=== PATIENT | female | born 1985 | race Caucasian/White ===

== ENCOUNTER 2019-11-28 07:29 | Inpatient (IN) | payer SELFPAY ==
[~2019-11-28] VITALS: Ht 170.1 cm; Wt 112.8 kg
[~2019-11-28 07:29] MED LIST: CEFD300C3 PO; CPR500T PO; HYDR-34 PO; HYDR1TAB PO; IBUP-15; LEVAQUIN; ONDA4TAB11 PO; PRM25T PO; TYLENOL; VICODIN
[2019-11-28] MEDS ORDERED: NS IV 1000 ML 1,000 ML IV SCH (07:48)
[2019-11-28] MEDS ORDERED: HCTZ (07:50)
--- NOTE | 2019-11-28 07:51 | NUR ---
AMB TO BATHROOM
[2019-11-28 07:58] LABS: BILIRUBIN,URINE NEGATIVE (NEGATIVE); CLARITY,URINE CLEAR; COLOR,URINE YELLOW; GLUCOSE, URINE (UA) NEGATIVE (NEGATIVE); KETONES,URINE NEGATIVE (NEGATIVE); LEUKOCYTE ESTERASE ,URINE 3+ (NEGATIVE); NITRITE,URINE POSITIVE (NEGATIVE); PH,URINE 6.5 (5-9); PROTEIN,URINE NEGATIVE (NEGATIVE)
[2019-11-28] MEDS ORDERED: ONDANSETRON 4 MG/2 ML (SDV) Z0FRAN IVP ONE (08:00)
[2019-11-28] MEDS ORDERED: KETOROLAC 30 MG/ML VIAL IVP ONE (08:00)
[2019-11-28 08:06] LABS: BASOPHILS % (AUTO) 0 % (0-10); EOSINOPHILS # (AUTO) 0.2 10^3/uL (0.0-0.3); EOSINOPHILS % (AUTO) 2 % (0-10); HEMATOCRIT 46 % (35-52); HEMOGLOBIN 15.6 G/DL (11.5-16.0); LYMPHOCYTES # (AUTO) 1.4 X 10^3 (1.0-4.0); LYMPHOCYTES % (AUTO) 12 % (12-44); MEAN CORPUSCULAR HEMOGLOBIN 29 PG (25-34); MEAN CORPUSCULAR HGB CONC 34 G/DL (32-36); MEAN CORPUSCULAR VOLUME 84 FL (80-99); MEAN PLATELET VOLUME 9.8 FL (7.4-10.4); MONOCYTES # (AUTO) 0.6 X 10^3 (0.0-1.0); MONOCYTES % (AUTO) 5 % (0-12); NEUTROPHILS # (AUTO) 10.1 X 10^3 (1.8-7.8); NEUTROPHILS % (AUTO) 82 % (42-75); PLATELET COUNT 345 10^3/uL (130-400); RED CELL DISTRIBUTION WIDTH 13.4 % (10.0-14.5); WHITE BLOOD COUNT 12.4 10^3/uL (4.3-11.0)
[2019-11-28 08:12] LABS: WBC,URINE 50-100 /HPF
[2019-11-28 08:13] LABS: BACTERIA,URINE LARGE /HPF
--- NOTE | 2019-11-28 08:17 | ED GU-Female ---
General Chief Complaint: Abdominal/GI Problems Stated Complaint: KIDNEY PAIN Nursing Triage Note: AMB TO ED C/O R FLANK PAIN PMH OF KIDNEY STONE. REPORTS IN APR HAS LG STONE REMOVED. YESTERDAY ONSET OF R FLANK PAIN Nursing Sepsis Screen: No Definite Risk Source: patient Exam Limitations: no limitations History of Present Illness Date Seen by Provider: Nov 28, 2019 Time Seen by Provider: 07:29 Initial Comments The patient arrives to the ER from home with chief complaint of one-day right flank pain consistent with her history of kidney stones radiating down into her right groin with hesitancy and, hematuria, dysuria. She's had chills but no fevers. Tmax of 99.0. She's been using Tylenol and ibuprofen. Her last dose of her Profen was sometime last night before she went to bed 600 mg. She says the pain as 9 out of 10. She has followed with Dr. Aguilar, urology at [facility] and had to have nephrostomy and urostomy tubes. She is familiar with Dr. Hernandez locally. She's having some nausea but no vomiting. She's had only marginal pain control. Allergies and Home Medications Allergies Coded Allergies: Sulfa (Sulfonamide Antibiotics) (Unverified Allergy, Mild, HIVES, 07/05/08) Patient Home Medication List Home Medication List Reviewed: Yes Review of Systems Review of Systems Constitutional: chills; No diaphoresis, No fever; malaise EENTM: No ear discharge, No ear pain Respiratory: No cough, No short of breath Cardiovascular: No chest pain, No Hx of Intervention Gastrointestinal: No abdominal pain; nausea; No vomiting Genitourinary: see HPI, dysuria, frequency, flank pain, hematuria : No Musculoskeletal: No back pain, No joint pain All Other Systemes Reviewed Negative Unless Noted: Yes Past Mxnclew-Khrbvp-Ayjaok Hx Patient Social History Alcohol Use: Denies Use Recreational Drug Use: No Smoking Status: Never a Smoker Recent Foreign Travel: No Contact w/Someone Who Travel: No Recent Infectious Disease Expo: No Past Medical History Surgeries: Yes (KIDNEY STONE) Respiratory: No Cardiac: Yes Hypertension Gastrointestinal: No Endocrine: No HEENT: No Cancer: No Psychosocial: No Physical Exam Vital Signs Vital Signs - First Documented 11/28/19 07:34 Temp 36.9 Pulse 100 Resp 18 B/P (MAP) 117/99 (105) Pulse Ox 99 Capillary Refill : Less Than 3 Seconds Height, Weight, BMI Height: '" Weight: lbs. oz. kg; 36.00 BMI Method: General Appearance: WD/WN, mild distress HEENT: PERRL/EOMI, pharynx normal Neck: full range of motion, supple, normal inspection Cardiovascular: normal peripheral pulses, regular rate, rhythm, tachycardia (120-130) Respiratory: lungs clear, normal breath sounds, no respiratory distress, no accessory muscle use Gastrointestinal: normal bowel sounds, non tender, soft Neurologic/Psychiatric: alert, normal mood/affect, oriented x 3 Skin: normal color, warm/dry Focused Exam Sepsis Stage: Sepsis Possible Source: Genitouriary Lactate Level 11/28/19 08:13: Lactic Acid Level 2.05*H Time of Focused Exam: 09:27 Respiratory: Lungs Clear, Normal Breath Sounds, No Accessory Muscle Use, No Respiratory Distress Cardiovascular: Regular Rate, Rhythm, No Edema, Normal Peripheral Pulses Capillary Refill: Less Than 3 Seconds Peripheral Pulses: 2+ Radial Pulses (R), 2+ Radial Pulses (L) Skin: normal color, warm/dry Lactic Acid Level Laboratory Tests Test 11/28/19 08:13 Lactic Acid Level 2.05 MMOL/L (0.50-2.00) *H Within 3hrs of presentation: Admin fluids, Admin 30ml/kg IBW due to BMI>30, Admin ABX, Blood cultures prior to ABX's, Focus exam, Lactate level Progress/Results/Core Measures Suspected Sepsis Recent Fever Within 48 Hours: No Infection Criteria Present: None New/Unexplained Altered Menta: No Sepsis Screen: No Definite Risk SIRS Temperature: Pulse: 100 Respiratory Rate: 18 Laboratory Tests 11/28/19 08:00: White Blood Count 12.4H Blood Pressure 117 /99 Mean: 105 11/28/19 08:13: Lactic Acid Level 2.05*H Laboratory Tests 11/28/19 08:00: Creatinine 0.83, INR Comment 0.9, Platelet Count 345, Total Bilirubin 0.5 Results/Orders Lab Results Laboratory Tests Test 11/28/19 07:55 11/28/19 08:00 11/28/19 08:13 Range/Units Urine Color YELLOW Urine Clarity CLEAR Urine pH 6.5 5-9 Urine Specific [place] 1.015 L 1.016-1.022 Urine Protein NEGATIVE NEGATIVE Urine Glucose (UA) NEGATIVE NEGATIVE Urine Ketones NEGATIVE NEGATIVE Urine Nitrite POSITIVE H NEGATIVE Urine Bilirubin NEGATIVE NEGATIVE Urine Urobilinogen 0.2 < = 1.0 MG/DL Urine Leukocyte Esterase 3+ H NEGATIVE Urine RBC (Auto) 3+ H NEGATIVE Urine RBC 10-25 H /HPF Urine WBC 50-100 H /HPF Urine Squamous Epithelial Cells 2-5 /HPF Urine Crystals NONE /LPF Urine Bacteria LARGE H /HPF Urine Casts NONE /LPF Urine Mucus NEGATIVE /LPF Urine Culture Indicated YES White Blood Count 12.4 H 4.3-11.0 10^3/uL Red Blood Count 5.46 4.35-5.85 10^6/uL Hemoglobin 15.6 11.5-16.0 G/DL Hematocrit 46 35-52 % Mean Corpuscular Volume 84 80-99 FL Mean Corpuscular Hemoglobin 29 25-34 PG Mean Corpuscular Hemoglobin Concent 34 32-36 G/DL Red Cell Distribution Width 13.4 10.0-14.5 % Platelet Count 345 130-400 10^3/uL Mean Platelet Volume 9.8 7.4-10.4 FL Neutrophils (%) (Auto) 82 H 42-75 % Lymphocytes (%) (Auto) 12 12-44 % Monocytes (%) (Auto) 5 0-12 % Eosinophils (%) (Auto) 2 0-10 % Basophils (%) (Auto) 0 0-10 % Neutrophils # (Auto) 10.1 H 1.8-7.8 X 10^3 Lymphocytes # (Auto) 1.4 1.0-4.0 X 10^3 Monocytes # (Auto) 0.6 0.0-1.0 X 10^3 Eosinophils # (Auto) 0.2 0.0-0.3 10^3/uL Basophils # (Auto) 0.0 0.0-0.1 10^3/uL Prothrombin Time 12.3 12.2-14.7 SEC INR Comment 0.9 0.8-1.4 Activated Partial Thromboplast Time 35 24-35 SEC Sodium Level 138 135-145 MMOL/L Potassium Level 3.7 3.6-5.0 MMOL/L Chloride Level 102 98-107 MMOL/L Carbon Dioxide Level 24 21-32 MMOL/L Anion Gap 12 5-14 MMOL/L Blood Urea Nitrogen 7 7-18 MG/DL Creatinine 0.83 0.60-1.30 MG/DL Estimat Glomerular Filtration Rate > 60 BUN/Creatinine Ratio 8 Glucose Level 106 H 70-105 MG/DL Calcium Level 9.6 8.5-10.1 MG/DL Corrected Calcium 9.4 8.5-10.1 MG/DL Total Bilirubin 0.5 0.1-1.0 MG/DL Aspartate Amino Transf (AST/SGOT) 27 5-34 U/L Alanine Aminotransferase (ALT/SGPT) 46 0-55 U/L Alkaline Phosphatase 77 40-136 U/L Total Protein 8.0 6.4-8.2 GM/DL Albumin 4.2 3.2-4.5 GM/DL Lactic Acid Level 2.05 *H 0.50-2.00 MMOL/L My Orders Orders - SHRUTHI JIANG Ua Culture If Indicated (11/28/19 07:36) Urine Bedside (11/28/19 07:36) Ed Iv/Invasive Line Start (11/28/19 07:48) Ns Iv 1000 Ml (Sodium Chloride 0.9%) (11/28/19 07:48) Cbc With Automated Diff (11/28/19 07:48) Comprehensive Metabolic Panel (11/28/19 07:48) Ct Abd/Pelvis Wo(Kidney Stone) (11/28/19 07:57) Ketorolac Injection (Toradol Injection) (11/28/19 08:00) Ondansetron Injection (Zofran Injectio (11/28/19 08:00) Blood Culture (11/28/19 07:57) Lactic Acid Analyzer (11/28/19 07:57) Urine Culture (11/28/19 07:55) Protime With Inr (11/28/19 08:27) Partial Thromboplastin Time (11/28/19 08:27) Ed Iv/Invasive Line Start (11/28/19 08:27) Ed Iv/Invasive Line Start (11/28/19 08:27) Vital Signs Adult Sepsis Patie Q15M (11/28/19 08:27) Remove Rings In Anticipation O (11/28/19 08:27) Ceftriaxone For Iv Use (Rocephin For I (11/28/19 08:30) Ed Iv/Invasive Line Start (11/28/19 08:27) Ns Iv 500 Ml (Sodium Chloride 0.9%) (11/28/19 08:27) Medications Given in ED Current Medications Medications Dose Ordered Sig/Darrius Route Start Time Stop Time Status Last Admin Dose Admin Ceftriaxone Sodium 1000 mg/ Sterile Water 10 ml @ 200 mls/hr ONCE ONCE IV 11/28/19 08:30 11/28/19 08:32 DC 11/28/19 08:38 200 MLS/HR Ketorolac Tromethamine 30 mg ONCE ONCE IVP 11/28/19 08:00 11/28/19 08:01 DC 11/28/19 08:05 30 MG Ondansetron HCl 4 mg ONCE ONCE IVP 11/28/19 08:00 11/28/19 08:01 DC 11/28/19 08:04 4 MG Vital Signs/I&O 11/28/19 07:34 Temp 36.9 Pulse 100 Resp 18 B/P (MAP) 117/99 (105) Pulse Ox 99 Capillary Refill : Less Than 3 Seconds Blood Pressure Mean: 105 Progress Note : Time: 08:21 Progress Note Marginally elevated white count and tachycardia with a suspected source of infection in the urinary tract. We'll get a septic workup and give her 1500 mL of IV fluids which would be 20 mL/kg based on an adjusted ideal body weight of 78 kg. Rocephin for IV antibiotic coverage. CT scan of her abdomen and pelvis without IV contrast for kidney stone. Diagnostic Imaging Diagonstic Imaging: CT (kidney stone study without IV contrast) Plain Films/CT/US/NM/MRI: abdomen, pelvis Reviewed: Reviewed by Me Departure Communication (Admissions) Time/Spoke to Admitting Phy: 09:35 0925: Left voicemail with Dr. Patel. I discussed case with Dr. Patel and she agrees to accept patient to medical surgical floor on IV Rocephin for pyelonephritis Impression Primary Impression: Pyelonephritis Additional Impression: Sepsis Qualified Codes: A41.9 - Sepsis, unspecified organism Disposition: ADMITTED INPATIENT Condition: Stable Admissions Decision to Admit Reason: Admit from ER (General) Decision to Admit/Date: Nov 28, 2019 Time/Decision to Admit Time: 09:00 SHRUTHI JIANG Nov 28, 2019 08:17
--- NOTE | 2019-11-28 08:17 | NUR ---
2ND BLOOD CULTURE DRAWN BY LAB
[2019-11-28 08:25] LABS: ALANINE AMINOTRANSFERASE 46 U/L (0-55); ALBUMIN 4.2 GM/DL (3.2-4.5); ALKALINE PHOSPHATASE 77 U/L (40-136); BILIRUBIN,TOTAL 0.5 MG/DL (0.1-1.0); BUN/CREATININE RATIO 8; CALCIUM 9.6 MG/DL (8.5-10.1); CARBON DIOXIDE 24 MMOL/L (21-32); CHLORIDE 102 MMOL/L (98-107); CREATININE SERUM 0.83 MG/DL (0.60-1.30); GFR ESTIMATED > 60; GLUCOSE 106 MG/DL (70-105); POTASSIUM 3.7 MMOL/L (3.6-5.0); SODIUM 138 MMOL/L (135-145)
[2019-11-28] MEDS ORDERED: NS IV 500 ML 500 ML IV ONE (08:27)
[2019-11-28] MEDS ORDERED: cefTRIAXone FOR IV USE 1,000 MG in WATER (STERILE) FOR INJECTION 10 ML IV ONE (08:30)
[2019-11-28 08:45] LABS: INR 0.9 (0.8-1.4); PROTHROMBIN TIME PATIENT 12.3 SEC (12.2-14.7)
--- NOTE | 2019-11-28 08:57 | Diagnostic Imaging Report ---
PROCEDURE: CT urinary tract, rule out kidney stone. TECHNIQUE: Multiple contiguous axial images were obtained through the abdomen and pelvis without the use of intravenous contrast. Auto Exposure Controls were utilized during the CT exam to meet ALARA standards for radiation dose reduction. INDICATION: Right flank pain and hematuria. No prior studies are available for comparison. The lung bases are clear. Liver demonstrates diffuse low density consistent with hepatic steatosis. No discrete liver mass is identified. Gallbladder is unremarkable. There is no biliary ductal dilatation. Pancreas and spleen are unremarkable. No adrenal mass is detected. There are extensive calcifications involving the medullary portions of both kidneys consistent with medullary nephrocalcinosis. In addition, there appears to be nephrolithiasis present with several stones within renal collecting systems on the right. A 6 mm calculus lower pole right kidney is seen. There is a large calculus in the right renal pelvis measuring 13 mm. In addition, there appears to be gas within the right renal collecting system and right renal pelvis. 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 The right ureter is without calculi. There is trace gas in the urinary bladder. A left ureter is unremarkable. No hydronephrosis on the left side is seen. Aorta is non-aneurysmal. Small and large bowel loops are normal caliber. No free fluid is identified. There is no fluid collection. Uterus is unremarkable. IMPRESSION: 1. Hepatic steatosis. 2. Extensive renal calcifications bilaterally. Features are consistent with medullary nephrocalcinosis. In addition, there appears to be right-sided nephrolithiasis with largest calculus located in the right renal pelvis producing mild hydronephrosis. 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 There is trace gas within the urinary bladder as well. Dictated by: Dictated on workstation # [id number]
[2019-11-28] MEDS ORDERED: HYDROcodone/APAP 5 MG/325 MG (LORTAB) TAB PO ONE (09:45)
[2019-11-28 10:00] VITALS: BP 120/80
[2019-11-28] MEDS ORDERED: LACTATED RINGERS 1,000 ML IV ONE (10:18)
[2019-11-28 10:20] VITALS: BP 117/73
--- NOTE | 2019-11-28 10:20 | NUR ---
BEATA CHOUDHURY admitted to room 416-1, with an admitting diagnosis of SEPSIS/PYELONEPHRITIS, on 11/28/19 from ED via , accompanied by STAFF. BEATA CHOUDHURY introduced to surroundings, call light, bed controls, phone, TV, temperature control, lights, meal times, smoking policy, visitor policy, side rail policy, bathrooms and showers. Patient Rights given to patient in the handbook. BEATA CHOUDHURY verbalizes understanding that [facility] is not responsible for the loss or damage to any personal effects or valuables that are kept in the patients posession during their hospitalization. The following Patient Care Plans were discussed with the PT: Discharge Planning, PAIN, AND UTI. BEATA CHOUDHURY verbalizes understanding of Interdisciplinary Patient Education. Patient and/or family were informed about the Rapid Response Team and its purpose.
[2019-11-28] MEDS ORDERED: fentaNYL INJECTION 100 MCG/2 ML AMP IV PRN (11:30)
[2019-11-28] MEDS ORDERED: ONDANSETRON 4 MG/2 ML (SDV) Z0FRAN IV PRN (11:30)
[2019-11-28] MEDS: LACTATED RINGERS 1,000 ML IV SCH ×2 (11:40→18:04)
[2019-11-28 12:00] VITALS: BP 119/74
--- NOTE | 2019-11-28 13:00 | NUR ---
TYLENOL 650 PO FOR PAIN.
[2019-11-28] MEDS: ACETAMINOPHEN 325 MG TABLET PO PRN (13:03)
[2019-11-28] MEDS ORDERED: HYDR12.56 PO (13:06)
[2019-11-28] MEDS ORDERED: RT-ALBUINH IH (13:06)
[2019-11-28] MEDS ORDERED: ACET325T38 PO (13:06)
[2019-11-28] MEDS ORDERED: IBUP-1773 PO (13:06)
--- NOTE | 2019-11-28 13:15 | History & Physical-Hospitalist ---
History of Present Illness HPI/Chief Complaint Pt is a 34yoCF with a PMH of recurrent kidney stones who presented to the ER due to flank pain. She states her symptoms started a couple of days ago. She thought it was another kidney stone so just tried to deal with it at home. She slept most of yesterday and then developed chills and subjective fever. She has some dysuria as well. She states her temperature only got up to 99 at home but had rigors. She was hardly able to drive her kids to school today because of the rigors prompting her to seek evaluation here. Source: patient Date Seen 11/28/19 Time Seen by a Provider: 13:02 Attending Physician Baltazar Patel MD PCP No,Local Physician Referring Physician Date of Admission Nov 28, 2019 at 09:45 Home Medications & Allergies Home Medications Reviewed patient Home Medication Reconciliation performed by pharmacy medication reconciliations electronic lab technician and/or nursing. Patients Allergies have been reviewed. Allergies Allergies Coded Allergies Sulfa (Sulfonamide Antibiotics) (Unverified Allergy, Mild, HIVES, 11/28/19) Past Sixavvp-Kkcapz-Nqwpzf Hx Past Med/Social Hx: Reviewed Nursing Past Med/Soc Hx Patient Social History Marrital Status: single Employed/Student: employed Alcohol Use: Denies Use Recreational Drug Use: No Smoking Status: Never a Smoker Recent Foreign Travel: No Contact w/other who traveled: No Recent Infectious Disease Expo: No Past Medical History Cardiac: Hypertension Genitourinary: Kidney Infection, Kidney Stones Family History Reviewed Nursing Family Hx No Pertinent Family Hx Review of Systems Constitutional: chills, diaphoresis, fever EENTM: no symptoms reported Respiratory: No cough, No short of breath Cardiovascular: No chest pain, No palpitations Gastrointestinal: No abdominal pain, No nausea, No vomiting Genitourinary: dysuria, hematuria Musculoskeletal: muscle weakness Skin: no symptoms reported Psychiatric/Neurological: No Symptoms Reported Physical Exam Physical Exam Vital Signs Vital Signs - First Documented 11/28/19 11/28/19 07:34 10:00 Temp 36.9 Pulse 100 Resp 18 B/P (MAP) 117/99 (105) Pulse Ox 99 O2 Delivery Room Air Capillary Refill : Less Than 3 Seconds Height, Weight, BMI Height: '" Weight: lbs. oz. kg; 36.00 BMI Method: General Appearance: No Apparent Distress, WD/WN, Obese HEENT: PERRL/EOMI, Moist Mucous Membranes; No Scleral Icterus (L), No Scleral Icterus (R) Neck: Normal Inspection, Supple Respiratory: Lungs Clear, No Accessory Muscle Use, No Respiratory Distress Cardiovascular: Regular Rate, Rhythm, No JVD, No Murmur Gastrointestinal: Normal Bowel Sounds, Non Tender, Soft Extremity: No Calf Tenderness, No Pedal Edema Neurologic/Psychiatric: Alert, Oriented x3, Normal Mood/Affect Results Results/Procedures Labs Laboratory Tests 11/29/19 04:40 11/29/19 04:50 Patient resulted labs reviewed. Imaging: Reviewed Imaging Report Imaging [facility], [place] NAME: BEATA CHOUDHURY [facility] REC#: [id number] PT STATUS: REG ER : 1985 PHYSICIAN: SHRUTHI JIANG MD ADMIT DATE: 11/28/19/ER Draft Date of Exam:11/28/19 CT ABD/PELVIS WO(KIDNEY STONE) PROCEDURE: CT urinary tract, rule out kidney stone. TECHNIQUE: Multiple contiguous axial images were obtained through the abdomen and pelvis without the use of intravenous contrast. Auto Exposure Controls were utilized during the CT exam to meet ALARA standards for radiation dose reduction. INDICATION: Right flank pain and hematuria. No prior studies are available for comparison. The lung bases are clear. Liver demonstrates diffuse low density consistent with hepatic steatosis. No discrete liver mass is identified. Gallbladder is unremarkable. There is no biliary ductal dilatation. Pancreas and spleen are unremarkable. No adrenal mass is detected. There are extensive calcifications involving the medullary portions of both kidneys consistent with medullary nephrocalcinosis. In addition, there appears to be nephrolithiasis present with several stones within renal collecting systems on the right. A 6 mm calculus lower pole right kidney is seen. There is a large calculus in the right renal pelvis measuring 13 mm. In addition, there appears to be gas within the right renal collecting system and right renal pelvis. 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 The right ureter is without calculi. There is trace gas in the urinary bladder. A left ureter is unremarkable. No hydronephrosis on the left side is seen. Aorta is non-aneurysmal. Small and large bowel loops are normal caliber. No free fluid is identified. There is no fluid collection. Uterus is unremarkable. IMPRESSION: 1. Hepatic steatosis. 2. Extensive renal calcifications bilaterally. Features are consistent with medullary nephrocalcinosis. In addition, there appears to be right-sided nephrolithiasis with largest calculus located in the right renal pelvis producing mild hydronephrosis. 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 There is trace gas within the urinary bladder as well. Dictated on workstation # [id number] Dict: 11/28/19 0841 Trans: 11/28/19 0857 CV [id number] Interpreted by: ROBINSON HORTON MD Electronically signed by: Assessment/Plan Admission Diagnosis Severe Sepsis Admission Status: Inpatient Order (span 2 midnights) Reason for Inpatient Admission: IV abx, extensive calculi- need to await cultures Assessment and Plan Severe Sepsis- present on arrival Nephrolithiasis UTI Fever with leukocytosis and tachycardia with Lactic Acidosis Continue IV abx Await cultures Discussed with Dr Hernandez who will see her in consultation, appreciate assistance Normally follows with [facility] for urology DVT ppx: SCDs Diagnosis/Problems Diagnosis/Problems (1) Pyelonephritis Status: Acute (2) Sepsis Status: Acute Qualifiers: Sepsis type: Escherichia coli Sepsis acute organ dysfunction status: with acute organ dysfunction Severe sepsis acute organ dysfunction type: unspecified Severe sepsis shock status: without septic shock Qualified Codes: A41.51 - Sepsis due to Escherichia coli [e. coli]; R65.20 - Severe sepsis without septic shock (3) Nephrolithiasis Status: Chronic (4) Hypercalciuria Status: Chronic BALTAZAR PATEL MD Nov 28, 2019 13:15
[2019-11-28] MEDS ORDERED: IBUP-2473 PO (13:25)
--- NOTE | 2019-11-28 13:26 | NUR ---
I SPOKE WITH THE PATIENT, [facility] AND [facility] TO COMPLETE THIS MED REC HYDROCHLOROTHIAZIDE 12.5MG #60 30DS LAST FILLED 10/25/2019 ALBUTEROL SULFATE INH LAST PICKED UP 10/10/2019 OTC: IBUPROFEN TYLENOL
--- NOTE | 2019-11-28 15:25 | NUR ---
LORTAB 5 PO FOR PAIN.
[2019-11-28] MEDS: HYDROcodone/APAP 5 MG/325 MG (LORTAB) TAB PO PRN ×2 (15:28→21:28)
[2019-11-28 15:49] VITALS: BP 128/71
[2019-11-28] MEDS: KETOROLAC 15 MG/ML VIAL IV PRN (21:29)
[2019-11-28 21:49] VITALS: BP 107/56
--- NOTE | 2019-11-28 22:40 | NUR ---
2148- DURING VITAL SIGNS CHECK, PT HAD TEMPERATURE OF 39.1 DEGREES CELSIUS PER TEMPORAL THERMOMETER AND RATING PAIN 5/10 D/T HEADACHE. BP- 107/56 WITH PULSE OF 113. 2157- TORADOL 15 MG IV GIVEN FOR TEMPERATURE--- LORTAB 5 MG PO GIVEN FOR PAIN AT THIS TIME. 2224- PT STATES THAT SHE WOULD LIKE TO TAKE A SHOWER D/T SWEATING AND TO HELP WITH HER FEVER. PT'S IV WRAPPED AND ASSISTED TO SHOWER AT THIS TIME. 2239- PT FINISHED WITH SHOWER AND HELP BACK INTO BED. RECHECKED TEMPERATURE AND IT IS 36.0 DEGREES CELSIUS PER TEMPORAL THERMOMETER AND PATIENT STATES HER PAIN HAS IMPROVED TO A 1/10. ALL NEEDS MET AT THIS TIME. WILL CONTINUE TO MONITOR.
[2019-11-29 00:45] VITALS: BP 102/58
[2019-11-29] MEDS: LACTATED RINGERS 1,000 ML IV SCH ×3 (01:15→08:04)
[2019-11-29 04:17] VITALS: BP 112/62
[2019-11-29 05:07] LABS: BASOPHILS % (AUTO) 0 % (0-10); EOSINOPHILS # (AUTO) 0.2 10^3/uL (0.0-0.3); EOSINOPHILS % (AUTO) 1 % (0-10); HEMATOCRIT 41 % (35-52); HEMOGLOBIN 13.8 G/DL (11.5-16.0); LYMPHOCYTES # (AUTO) 2.5 X 10^3 (1.0-4.0); LYMPHOCYTES % (AUTO) 18 % (12-44); MEAN CORPUSCULAR HEMOGLOBIN 29 PG (25-34); MEAN CORPUSCULAR HGB CONC 34 G/DL (32-36); MEAN CORPUSCULAR VOLUME 85 FL (80-99); MEAN PLATELET VOLUME 9.8 FL (7.4-10.4); MONOCYTES # (AUTO) 1.9 X 10^3 (0.0-1.0); MONOCYTES % (AUTO) 14 % (0-12); NEUTROPHILS # (AUTO) 8.9 X 10^3 (1.8-7.8); NEUTROPHILS % (AUTO) 66 % (42-75); PLATELET COUNT 298 10^3/uL (130-400); RED CELL DISTRIBUTION WIDTH 13.7 % (10.0-14.5); WHITE BLOOD COUNT 13.4 10^3/uL (4.3-11.0)
[2019-11-29 05:32] LABS: ALANINE AMINOTRANSFERASE 31 U/L (0-55); ALBUMIN 3.3 GM/DL (3.2-4.5); ALKALINE PHOSPHATASE 54 U/L (40-136); BILIRUBIN,TOTAL 0.5 MG/DL (0.1-1.0); BUN/CREATININE RATIO 9; CARBON DIOXIDE 26 MMOL/L (21-32); CHLORIDE 103 MMOL/L (98-107); GFR ESTIMATED > 60; GLUCOSE 110 MG/DL (70-105); POTASSIUM 3.8 MMOL/L (3.6-5.0); SODIUM 138 MMOL/L (135-145); TOTAL PROTEIN 6.5 GM/DL (6.4-8.2)
[2019-11-29] MEDS: KETOROLAC 15 MG/ML VIAL IV PRN ×2 (06:04→17:00)
[2019-11-29 08:00] VITALS: BP 118/75
[2019-11-29] MEDS: ACETAMINOPHEN 325 MG TABLET PO PRN (08:03)
[2019-11-29] MEDS: cefTRIAXone 1,000 MG/SWFI 10 ML IV PUSH IV SCH ×2 (08:04)
[2019-11-29] MEDS ORDERED: PATIENT MAY USE OWN MEDS, ALL MC SCH (08:15)
[2019-11-29] MEDS ORDERED: HYDROCHLOROTHIAZIDE 12.5 MG (HCTZ) CAP PO SCH ×2 (09:00)
--- NOTE | 2019-11-29 10:58 | NUR ---
RD ASSESSMENT PMHx: HTN; nephrolithiasis PT INTERACTION: Pt was awake and pleasant during nutrition assessment. Pt states current appetite is "better now," as it had been poor this morning. Note PO intake 25% x1meal, per chart review. Pt states that she watches her Na intake at home, and has no issues with chewing/swallowing food. Pt states some recent issues with nausea, but not vomiting, constipation, or diarrhea, and that her last BM was 11/26. Note pt not currently on bowel regimen per chart review. Pt states no recent wt changes. Note unable to determine recent wt hx, per chart review. ABNORMAL NUTRITION-RELATED LAB VALUES LOW: HIGH: glu 110 Est. kcal needs: 1700 kcal | 15 kcal/kg Est. Pro needs: 90 g Pro | 0.8 g Pro/kg PES STATEMENT: Inadequate oral intake (NI-2.1) related to loss of appetite | nausea as evidenced by pt interview | PO intake 25% x1meal INTERVENTION: Continue with current diet order of Regular diet. Pt may benefit from nutrition supplementation if PO intake remains low. Will continue to follow and reassess as pt needs, intake, and status change. MONITOR/EVALUATE: PO Intake; Plan of Care; Hydration Status; Weight Status; Lab Values Lino Ravi, MS, RD, LD
--- NOTE | 2019-11-29 11:11 | Progress Note - Hospitalist ---
Subjective HPI/CC On Admission Date Seen by Provider: Nov 29, 2019 Time Seen by Provider: 11:07 Pt is a 34yoCF with a PMH of recurrent kidney stones who presented to the ER due to flank pain. She states her symptoms started a couple of days ago. She thought it was another kidney stone so just tried to deal with it at home. She slept most of yesterday and then developed chills and subjective fever. She has some dysuria as well. She states her temperature only got up to 99 at home but had rigors. She was hardly able to drive her kids to school today because of the rigors prompting her to seek evaluation here. Subjective/Events-last exam Pt reports feeling much better today. No new complaints. Fever overnight but now improved. Focused Exam Lactate Level 11/28/19 08:13: Lactic Acid Level 2.05*H 11/28/19 10:20: Lactic Acid Level 0.96 Time of Focused Exam: 09:27 Objective Exam Vital Signs Vital Signs Date Time Temp Pulse Resp B/P (MAP) Pulse Ox O2 Delivery O2 Flow Rate FiO2 11/29/19 08:00 Room Air 11/29/19 08:00 37.3 98 20 118/75 (89) 93 Capillary Refill : Less Than 3 SecondsLess Than 3 Seconds General Appearance: No Apparent Distress, WD/WN Respiratory: Lungs Clear, No Respiratory Distress Cardiovascular: Regular Rate, Rhythm, No Murmur Gastrointestinal: Normal Bowel Sounds, Soft Neurologic/Psychiatric: Alert, Oriented x3 Results/Procedures Lab Laboratory Tests 11/29/19 04:40 11/29/19 04:50 Patient resulted labs reviewed. Imaging: Reviewed Imaging Report Assessment/Plan Assessment and Plan Assess & Plan/Chief Complaint Severe Sepsis- present on arrival Nephrolithiasis UTI Sepsis improving- now afebrile Continue IV abx Await sensitivities, culture shows e coli Dr Hernandez consulted, appreciate recs Normally follows with [facility] for urology Resume home HCTZ DVT ppx: SCDs Diagnosis/Problems Diagnosis/Problems (1) Sepsis Status: Acute Qualifiers: Sepsis type: Escherichia coli Sepsis acute organ dysfunction status: with acute organ dysfunction Severe sepsis acute organ dysfunction type: unspecified Severe sepsis shock status: without septic shock Qualified Codes: A41.51 - Sepsis due to Escherichia coli [e. coli]; R65.20 - Severe sepsis without septic shock (2) Pyelonephritis Status: Acute (3) Nephrolithiasis Status: Chronic (4) Hypercalciuria Status: Chronic Clinical Quality Measures DVT/VTE Risk/Contraindication: Risk Factor Score Per Nursin RFS Level Per Nursing on Admit: 4+=Very High ABLTAZAR DEJESUS MD Nov 29, 2019 11:11
[2019-11-29 12:00] VITALS: BP 115/79
--- NOTE | 2019-11-29 12:36 | CONSULTATION REPORT ---
DATE OF SERVICE: 11/29/2019 ATTENDING PHYSICIAN: Dr. Patel. SUMMARY: After reviewing the patient's record in the hospital, x-rays and office record, a 24-year-old white girl known to me with a history of nephrocalcinosis and a large renal stones that I referred to Dr. Pollock in . The patient was lost for followup. She even missed her appointment with him in September. She is not a greatest reliability. She is being admitted with flank pain and pyelonephritis. There is some air in the right kidney, but not enough to call it emphysematous pyelonephritis, clinically definitely not. She is feeling better. She has improved. Her temperature is down this morning. Her flank tenderness is better. I reviewed her H and P by Dr. Patel and the ER. IMPRESSION: 1. Acute right pyelonephritis. 2. Urolithiasis. 3. Nephrocalcinosis. PLAN: Continue present management as long as she improves, continue the same, keep her on antibiotics for a total of 2 weeks. If she turns the other way and started having problems, she needs to be transferred to to Dr. Pollock. Plan was fully explained to the patient. Job ID: [id number] DocumentID: [id number] Dictated Date: 11/29/2019 08:31:[address] Date: 11/29/2019 12:36:00 Dictated By: K[facility]IE [facility]
--- NOTE | 2019-11-29 15:03 | Discharge Inst-Simple/Standard ---
Discharge Inst-Standard Discharge Medications New, Converted or Re-Newed RX: Transmitted to Pharmacy Patient Instructions/Follow Up Plan of Care/Instructions/FU: Please continue to take your medications as written. Please follow up with your primary care doctor in the next week to follow up this hospital stay. Activity as Tolerated: Yes Discharge Diet: No Restrictions Return to The Hospital For: Fever, abdominal or back pain, nausea, vomiting, diarrhea, if you feel you are getting worse. BALTAZAR DEJESUS MD Nov 29, 2019 15:03
[2019-11-29 15:11] VITALS: BP 121/74
[2019-11-29 19:39] VITALS: BP 113/76
[2019-11-29] MEDS: HYDROcodone/APAP 5 MG/325 MG (LORTAB) TAB PO PRN (20:27)
[2019-11-29] MEDS: HYDROCHLOROTHIAZIDE 12.5 MG (HCTZ) CAP PO SCH (20:27)
[2019-11-30] MEDS: HYDROcodone/APAP 5 MG/325 MG (LORTAB) TAB PO PRN ×2 (00:18→05:49)
[2019-11-30 04:00] VITALS: BP 95/95
[2019-11-30 08:00] VITALS: BP 114/59
[2019-11-30] MEDS: HYDROCHLOROTHIAZIDE 12.5 MG (HCTZ) CAP PO SCH (08:15)
[2019-11-30] MEDS: cefTRIAXone 1,000 MG/SWFI 10 ML IV PUSH IV SCH ×2 (08:15)
--- NOTE | 2019-11-30 11:10 | NUR ---
Sherin: Pt has no yarsanism preference but is open to prayer. Importance:Pt was more interested in talking about her health and family than her spiritual beliefs and practices. Community:Several children at home she is eager to get back with Action: No needs indicated. Paper Box Maker offered blessing.
[2019-11-30 11:39] VITALS: BP 106/65
--- NOTE | 2019-11-30 11:40 | Discharge Summary ---
Diagnosis/Chief Complaint Date of Admission Nov 28, 2019 at 09:45 Date of Discharge Discharge Date: Nov 30, 2019 Admission Diagnosis Severe Sepsis Primary Care Discharge Diagnosis (1) Sepsis Status: Acute (2) Pyelonephritis Status: Acute (3) Nephrolithiasis Status: Chronic (4) Hypercalciuria Status: Chronic Discharge Summary Procedures/Consulations Urology- Dr Hernandez Discharge Physical Exam Allergies: Coded Allergies: Sulfa (Sulfonamide Antibiotics) (Unverified Allergy, Mild, HIVES, 11/28/19) Vitals & I&Os Vital Signs Date Time Temp Pulse Resp B/P (MAP) Pulse Ox O2 Delivery O2 Flow Rate FiO2 11/30/19 08:00 Room Air 11/30/19 08:00 35.9 88 18 114/59 (77) 98 General Appearance: No Apparent Distress, WD/WN Cardiovascular: Regular Rate, Rhythm, No Murmur Neurologic/Psychiatric: Alert, Oriented x3 Hospital Course Pt was admitted due to sepsis and pyelonephrititis. She was treated with IV antibiotics and her urine culture grew pansensitive e coli. She was switched to oral Keflex for discharge. She had an uneventful hospital stay and urology was consulted as well. She is to follow up with her urologist at [facility]. Labs (last 24 hrs) Microbiology 11/28/19 Blood Culture - Preliminary, Resulted No growth 11/28/19 Urine Culture - Preliminary, Resulted Escherichia coli Patient resulted labs reviewed. Imaging: Reviewed Imaging Report Discussion & Recommendations Discharge Planning: >30 minutes discharge planning Discharge Home Medications: Active Scripts Active Reported Ibuprofen 200 Mg Tablet 200 Mg PO Q6H PRN Proair Hfa (Albuterol Sulfate) 1 Puff Puff 2 Puff IH Q4H PRN Tylenol (Acetaminophen) 325 Mg Tablet 650 Mg PO Q6H PRN Hydrochlorothiazide 12.5 Mg Tablet 12.5 Mg PO BID Instructions to patient/family Please see electronic discharge instructions given to patient. Clinical Quality Measures DVT/VTE Risk/Contraindication: Risk Factor Score Per Nursin RFS Level Per Nursing on Admit: 4+=Very High Problem Qualifiers (1) Sepsis: Sepsis type: Escherichia coli Sepsis acute organ dysfunction status: with acute organ dysfunction Severe sepsis acute organ dysfunction type: unspecified Severe sepsis shock status: without septic shock Qualified Codes: A41.51 - Sepsis due to Escherichia coli [e. coli]; R65.20 - Severe sepsis without septic shock BALTAZAR DEJESUS MD Nov 30, 2019 11:40
[2019-11-30] MEDS ORDERED: CEPH-507 PO (11:42)
--- NOTE | 2019-11-30 12:01 | NUR ---
PIV REMOVED, DC INSTRUCTIONS GIVEN INCLUDING FOLLOW UP AND SIGNS AND SYMPTOMS. PT INFORMED OF PRESCRIPTION, PT VERBALIZED UNDERSTANDING OF ALL TEACHING, QUESTIONS ANSWERED. PT AWAITING RIDE FROM HOME.
[2019-11-30 12:38] VITALS: BP 106/65
--- NOTE | 2019-11-30 12:38 | NUR ---
BEATA CHOUDHURY demonstrates understanding of discharge instructions and accurately returns instructions upon questioning. Copy of Post-Discharge Instructions and Medication Discharge Instructions given to PT. BEATA CHOUDHURY is able to manage continuing needs after discharge. Patients belongings returned to PT. Skin dry and intact; no breakdown noted. Patient discharged from 416-1 on at 1238. BEATA CHOUDHURY left floor via WC, accompanied by STAFF.
== END 2019-11-30 12:38 | disposition home or self-care (01) | DRG 872 ==
LOC: EDUNIT# 07:29 → ER 07:31 → 4TH 09:45
PROVIDERS: ADMIT Family Medicine; ATTEND Family Medicine
DX: A41.51 Sepsis due to Escherichia coli [E. coli] (principal); N10 Acute pyelonephritis; E87.2 Acidosis; N20.0 Calculus of kidney; R65.20 Severe sepsis without septic shock; E66.9 Obesity, unspecified; Z68.39 Body mass index [BMI] 39.0-39.9, adult; Z88.2 Allergy status to sulfonamides
CPT/HCPCS: 36415; 74176; 80053; 81000; 83605; 84703; 85025; 85610; 85730; 87040; 87088; 87186

== ENCOUNTER 2020-03-30 13:22 | Emergency (ER) | payer BC ==
[~2020-03-30] VITALS: Ht 170 cm; Wt 108.0 kg
[~2020-03-30 13:22] MED LIST changes: +ACET325T38 PO; +CEPH-507 PO; +HCTZ; +HYDR12.56 PO; +IBUP-1773 PO; +IBUP-2473 PO; +RT-ALBUINH IH
--- NOTE | 2020-03-30 14:11 | ED Back Pain ---
General Chief Complaint: Back Problems Stated Complaint: SHARP PAIN IN ABD Nursing Triage Note: ARRIVED VIA AMB TO ROOM 06 WITH COMPLAINTS OF RIGHT FLANK PAIN . HX OF KIDNEY STONES. Nursing Sepsis Screen: No Definite Risk Source of Information: Patient Exam Limitations: No Limitations History of Present Illness Date Seen by Provider: Mar 30, 2020 Time Seen by Provider: 14:09 Initial Comments To ER with sudden onset of right left pain onset this morning that has gotten progressively worse throughout the day. No fevers or chills. History of kidney stones and this feels similar. Location: Paraspinous Muscles Timing/Duration: 4-6 Hours Severity: Moderate Associated Symptoms: denies symptoms Allergies and Home Medications Allergies Coded Allergies: Sulfa (Sulfonamide Antibiotics) (Unverified Allergy, Mild, HIVES, 11/28/19) Home Medications Acetaminophen 325 Mg Tablet, 650 MG PO Q6H PRN for PAIN-MILD (1-4), (Reported) Albuterol Sulfate 1 Puff Puff, 2 PUFF IH Q4H PRN for SHORTNESS OF BREATH, (Reported) Cefuroxime Axetil 250 Mg Tablet, 250 MG PO BID Prescribed by: JOVITA MOORE on 03/30/20 1620 Cephalexin 500 Mg Capsule, 500 MG PO BID Prescribed by: BALTAZAR DEJESUS on 11/30/19 1142 Hydrochlorothiazide 12.5 Mg Tablet, 12.5 MG PO BID, (Reported) Hydrocodone/Acetaminophen 1 Each Tablet, 1 EACH PO Q4H PRN for PAIN-MODERATE (5- 7) Prescribed by: JOVITA MOORE on 03/30/20 1620 Ibuprofen 200 Mg Tablet, 200 MG PO Q6H PRN for PAIN-MILD (1-4), (Reported) Patient Home Medication List Home Medication List Reviewed: Yes Review of Systems Constitutional: see HPI; No chills, No fever EENTM: see HPI Respiratory: no symptoms reported Cardiovascular: no symptoms reported Genitourinary: see HPI, pain Musculoskeletal: no symptoms reported Skin: no symptoms reported Psychiatric/Neurological: No Symptoms Reported Past Qjjtkyy-Vwskmo-Xtpghc Hx Patient Social History Alcohol Use: Denies Use Recreational Drug Use: No Smoking Status: Never a Smoker 2nd Hand Smoke Exposure: No Recent Foreign Travel: No Contact w/Someone Who Travel: No Recent Infectious Disease Expo: No Recent Hopitalizations: No Immunizations Up To Date Tetanus Booster (TDap): Unknown Seasonal Allergies Seasonal Allergies: No Past Medical History Surgeries: Yes (KIDNEY STONE) Section, Tubal Ligation Respiratory: No Cardiac: No Hypertension Neurological: No Reproductive Disorders: No 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 oz. kg; 37.00 BMI Method: General Appearance: No Apparent Distress, WD/WN, Other (Vomiting on arrival) Neck: Full Range of Motion, Normal Inspection Respiratory: Normal Breath Sounds, No Accessory Muscle Use, No Respiratory Distress Gastrointestinal: Normal Bowel Sounds, Non Tender, Soft Extremity: Normal Capillary Refill, Normal Inspection Neurologic/Psychiatric: Alert, Oriented x3 Skin: Normal Color, Warm/Dry Progress/Results/Core Measures Results/Orders Lab Results Laboratory Tests Test 03/30/20 14:00 03/30/20 15:48 Range/Units White Blood Count 13.0 H 4.3-11.0 10^3/uL Red Blood Count 5.24 H 3.80-5.11 10^6/uL Hemoglobin 15.2 11.5-16.0 g/dL Hematocrit 46 35-52 % Mean Corpuscular Volume 87 80-99 fL Mean Corpuscular Hemoglobin 29 25-34 pg Mean Corpuscular Hemoglobin Concent 33 32-36 g/dL Red Cell Distribution Width 13.1 10.0-14.5 % Platelet Count 393 130-400 10^3/uL Mean Platelet Volume 9.7 9.0-12.2 fL Immature Granulocyte % (Auto) 1 % Neutrophils (%) (Auto) 84 H 42-75 % Lymphocytes (%) (Auto) 9 L 12-44 % Monocytes (%) (Auto) 1 0-12 % Eosinophils (%) (Auto) 5 0-10 % Basophils (%) (Auto) 1 0-10 % Neutrophils # (Auto) 10.9 H 1.8-7.8 10^3/uL Lymphocytes # (Auto) 1.2 1.0-4.0 10^3/uL Monocytes # (Auto) 0.1 0.0-1.0 10^3/uL Eosinophils # (Auto) 0.7 H 0.0-0.3 10^3/uL Basophils # (Auto) 0.1 0.0-0.1 10^3/uL Immature Granulocyte # (Auto) 0.1 0.0-0.1 10^3/uL Sodium Level 139 135-145 MMOL/L Potassium Level 3.4 L 3.6-5.0 MMOL/L Chloride Level 101 98-107 MMOL/L Carbon Dioxide Level 26 21-32 MMOL/L Anion Gap 12 5-14 MMOL/L Blood Urea Nitrogen 13 7-18 MG/DL Creatinine 1.05 0.60-1.30 MG/DL Estimat Glomerular Filtration Rate 60 BUN/Creatinine Ratio 12 Glucose Level 116 H 70-105 MG/DL Calcium Level 10.0 8.5-10.1 MG/DL Corrected Calcium 9.6 8.5-10.1 MG/DL Total Bilirubin 0.5 0.1-1.0 MG/DL Aspartate Amino Transf (AST/SGOT) 28 5-34 U/L Alanine Aminotransferase (ALT/SGPT) 38 0-55 U/L Alkaline Phosphatase 66 40-136 U/L Total Protein 8.1 6.4-8.2 GM/DL Albumin 4.5 3.2-4.5 GM/DL Serum Test, Qualitative NEGATIVE NEGATIVE Urine Color YELLOW Urine Clarity SL CLOUDY Urine pH 7.0 5-9 Urine Specific Rochelle 1.010 L 1.016-1.022 Urine Protein NEGATIVE NEGATIVE Urine Glucose (UA) NEGATIVE NEGATIVE Urine Ketones NEGATIVE NEGATIVE Urine Nitrite POSITIVE H NEGATIVE Urine Bilirubin NEGATIVE NEGATIVE Urine Urobilinogen 0.2 < = 1.0 MG/DL Urine Leukocyte Esterase 3+ H NEGATIVE Urine RBC (Auto) TRACE-I NEGATIVE Urine RBC 5-10 H /HPF Urine WBC 25-50 H /HPF Urine Squamous Epithelial Cells 5-10 /HPF Urine Crystals NONE /LPF Urine Bacteria FEW H /HPF Urine Casts NONE /LPF Urine Mucus NEGATIVE /LPF Urine Culture Indicated YES My Orders Orders - JOVITA MOORE WIRELINE SUPERVISOR Ceftriaxone For Iv Use (Rocephin For I (03/30/20 14:15) Ns Iv 1000 Ml (Sodium Chloride 0.9%) (03/30/20 14:15) Ondansetron Injection (Zofran Injectio (03/30/20 14:15) Ketorolac Injection (Toradol Injection) (03/30/20 14:15) Fentanyl Injection (Sublimaze Injection (03/30/20 14:15) Rx-Hydrocodone/Apap 5-325 Mg (Rx-Vicodin (03/30/20 14:15) Abdomen/Kub 1view (03/30/20 14:07) Ct Abd/Pelvis Wo(Kidney Stone) (03/30/20 14:07) Cbc With Automated Diff (03/30/20 14:07) Comprehensive Metabolic Panel (03/30/20 14:07) Ua Culture If Indicated (03/30/20 14:07) Ed Iv/Invasive Line Start (03/30/20 14:07) Hcg,Qualitative Serum (03/30/20 14:07) Morphine Injection (Morphine Injection (03/30/20 15:48) Urine Culture (03/30/20 15:48) Medications Given in ED Current Medications Medications Dose Ordered Sig/Darrius Route Start Time Stop Time Status Last Admin Dose Admin Ceftriaxone Sodium 1000 mg/ Sterile Water 10 ml @ 200 mls/hr ONCE ONCE IV 03/30/20 14:15 03/30/20 14:17 DC 03/30/20 14:31 200 MLS/HR Fentanyl Citrate 50 mcg ONCE ONCE IVP 03/30/20 14:15 03/30/20 14:16 DC 03/30/20 14:28 50 MCG Ketorolac Tromethamine 15 mg ONCE ONCE IVP 03/30/20 14:15 03/30/20 14:16 DC 03/30/20 14:29 15 MG Ondansetron HCl 4 mg ONCE ONCE IVP 03/30/20 14:15 03/30/20 14:16 DC 03/30/20 14:30 4 MG Vital Signs/I&O 03/30/20 13:55 Temp 36.0 Pulse 88 Resp 16 B/P (MAP) 145/95 (112) Pulse Ox 98 O2 Delivery Room Air Blood Pressure Mean: 112 Departure Impression Primary Impression: Right ureteral stone Additional Impression: UTI (urinary tract infection) Disposition: 01 HOME, SELF-CARE Condition: Stable Departure-Patient Inst. Decision time for Depature: 14:10 Referrals: NO,LOCAL PHYSICIAN (PCP) Primary Care Physician KATIE LARSON MD Patient Instructions: Kidney Stones (DC) Add. Discharge Instructions: 1. Take the antibiotics and pain medication as directed. Return to ER for any concerns. Follow-up with a urologist of your choosing. All discharge instructions reviewed with patient and/or family. Voiced understanding. Scripts Cefuroxime Axetil (Cefuroxime) 250 Mg Tablet 250 MG PO BID, #10 TAB Prov: JOVITA MOORE APRN 03/30/20 Hydrocodone/Acetaminophen (Hydrocodone-Acetamin 5-325 mg) 1 Each Tablet 1 EACH PO Q4H PRN for PAIN-MODERATE (5-7), #14 TAB Prov: JOVITA MOORE APRN 03/30/20 JOVITA MOORE APRN Mar 30, 2020 14:10
[2020-03-30 14:15] LABS: ALBUMIN 4.5 GM/DL (3.2-4.5); BASOPHILS # (AUTO) 0.1 10^3/uL (0.0-0.1); BASOPHILS % (AUTO) 1 % (0-10); EOSINOPHILS # (AUTO) 0.7 10^3/uL (0.0-0.3); EOSINOPHILS % (AUTO) 5 % (0-10); HEMATOCRIT 46 % (35-52); HEMOGLOBIN 15.2 g/dL (11.5-16.0); LYMPHOCYTES # (AUTO) 1.2 10^3/uL (1.0-4.0); LYMPHOCYTES % (AUTO) 9 % (12-44); MEAN CORPUSCULAR HEMOGLOBIN 29 pg (25-34); MEAN CORPUSCULAR HGB CONC 33 g/dL (32-36); MEAN CORPUSCULAR VOLUME 87 fL (80-99); MEAN PLATELET VOLUME 9.7 fL (9.0-12.2); MONOCYTES # (AUTO) 0.1 10^3/uL (0.0-1.0); MONOCYTES % (AUTO) 1 % (0-12); NEUTROPHILS # (AUTO) 10.9 10^3/uL (1.8-7.8); NEUTROPHILS % (AUTO) 84 % (42-75); PLATELET COUNT 393 10^3/uL (130-400)
[2020-03-30] MEDS ORDERED: NS IV 1000 ML 1,000 ML IV SCH (14:15)
[2020-03-30] MEDS ORDERED: fentaNYL INJECTION 100 MCG/2 ML AMP IVP ONE (14:15)
[2020-03-30] MEDS ORDERED: KETOROLAC 30 MG/ML VIAL IVP ONE (14:15)
[2020-03-30] MEDS ORDERED: ONDANSETRON 4 MG/2 ML (SDV) Z0FRAN IVP ONE (14:15)
[2020-03-30] MEDS ORDERED: RX-HYDROCODONE/APAP 5/325 MG #4 TAB PK PO PRN (14:15)
[2020-03-30] MEDS ORDERED: cefTRIAXone FOR IV USE 1,000 MG in WATER (STERILE) FOR INJECTION 10 ML IV ONE (14:15)
[2020-03-30 14:16] LABS: POTASSIUM 3.4 MMOL/L (3.6-5.0)
[2020-03-30 14:18] LABS: TOTAL PROTEIN 8.1 GM/DL (6.4-8.2)
[2020-03-30 14:20] LABS: BILIRUBIN,TOTAL 0.5 MG/DL (0.1-1.0)
[2020-03-30 14:22] LABS: CREATININE SERUM 1.05 MG/DL (0.60-1.30)
--- NOTE | 2020-03-30 15:07 | Diagnostic Imaging Report ---
CLINICAL INDICATION: Patient with left flank pain. Patient has history of stones. EXAM: X-ray of the abdomen supine view. COMPARISON: CT scan of the abdomen and pelvis without contrast dated 03/30/2020. FINDINGS: Again seen are renal shadows consistent with medullary nephrocalcinosis. Staghorn calculus in the right renal pelvis is seen. A 5 mm stone at distal left uterus/UVJ is also seen on this exam. There is no intestinal obstruction. IMPRESSION: 1: There is a 5 mm stone in the distal left ureter/UVJ region which is best seen on the comparison CT scan. 2: Renal shadows demonstrate medullary nephrocalcinosis and a right renal staghorn calculus. Dictated by: Dictated on workstation # [id number]
--- NOTE | 2020-03-30 15:20 | Diagnostic Imaging Report ---
Clinical indication: Patient with flank pain. History of stone. Patient has history of appendectomy. Exam: CT exam of the abdomen and pelvis is performed without IV or oral contrast using stone protocol. Coronal and sagittal reformatted images were created. Auto Exposure Controls were utilized during the CT exam to meet ALARA standards for radiation dose reduction. Comparisons: CT scan of the abdomen and pelvis without contrast dated 11/28/2019. Findings: There is mild atelectasis involving the bilateral lung bases. There are small spurs involving the lumbar spine and lower lumbar spine with facet arthropathy. There is suspected focal fatty sparing along the gallbladder fossa again noted. There is diffuse low-density throughout the liver likely related to diffuse fatty infiltration. The spleen, pancreas, gallbladder and adrenal glands are unremarkable. Again noted is medullary nephrocalcinosis. There is interval increased size of the calcification within the right renal pelvis measuring roughly 3.2 cm in greatest dimension. Previously this area measured 13 mm in AP dimension and currently measures 16 mm in AP dimension. There is no hydronephrosis. Again seen cyst involving the midportion of the right kidney. There is interval development of a 5 mm stone in the distal left ureter/UVJ region. There is mild left hydroureteronephrosis which has developed in the interim. There is no intra-abdominal free air or free fluid. Appendix is surgically resected. Bladder is decompressed The uterus and ovaries are unremarkable. There is no lymphadenopathy. There is no intestinal obstruction. The extra-abdominal and extra-pelvis soft tissue structures are unremarkable. Impression: 1: Interval development of a 5 mm stone within the distal left ureter/UVJ region with mild left hydroureteronephrosis. 2: Bilateral medullary nephrocalcinosis again seen. There is interval increased size of a staghorn calculus in the right renal pelvis seen. 3: There is diffuse fatty infiltration of the liver. 4: The remainder of this exam shows no significant interval change compared to the prior study of comparison. Dictated by: Dictated on workstation # [id number]
[2020-03-30] MEDS ORDERED: morphine INJ 10 MG/ML 1ML (SYR OR VIAL) IVP STA (15:48)
[2020-03-30 16:07] LABS: BILIRUBIN,URINE NEGATIVE (NEGATIVE); CLARITY,URINE SL CLOUDY; COLOR,URINE YELLOW; GLUCOSE, URINE (UA) NEGATIVE (NEGATIVE); KETONES,URINE NEGATIVE (NEGATIVE); LEUKOCYTE ESTERASE ,URINE 3+ (NEGATIVE); NITRITE,URINE POSITIVE (NEGATIVE); PROTEIN,URINE NEGATIVE (NEGATIVE)
[2020-03-30 16:16] LABS: BACTERIA,URINE FEW /HPF; WBC,URINE 25-50 /HPF
[2020-03-30] MEDS ORDERED: ACHD5005 PO (16:20)
[2020-03-30] MEDS ORDERED: CEFU250T80 PO (16:20)
[2020-03-30 16:50] VITALS: BP 127/86
== END 2020-03-30 16:50 | disposition home or self-care (01) ==
LOC: EDUNIT# 13:22 → ER 13:23
DX: N13.2 Hydronephrosis with renal and ureteral calculous obstruction (principal); N39.0 Urinary tract infection, site not specified; I10 Essential (primary) hypertension; Z88.2 Allergy status to sulfonamides
CPT/HCPCS: 36415; 74018; 74176; 80053; 81000; 84703; 85025; 87077; 87088; 87186

== ENCOUNTER 2020-06-03 15:42 | Emergency (ER) | payer BC ==
[~2020-06-03] VITALS: Ht 170 cm; Wt 108.8 kg
[~2020-06-03 15:42] MED LIST changes: +ACHD5005 PO; +CEFU250T80 PO
[2020-06-03 15:59] LABS: BILIRUBIN,URINE NEGATIVE (NEGATIVE); CLARITY,URINE SL CLOUDY; COLOR,URINE YELLOW; GLUCOSE, URINE (UA) NEGATIVE (NEGATIVE); KETONES,URINE NEGATIVE (NEGATIVE); LEUKOCYTE ESTERASE ,URINE 3+ (NEGATIVE); NITRITE,URINE POSITIVE (NEGATIVE); PROTEIN,URINE NEGATIVE (NEGATIVE)
[2020-06-03] MEDS ORDERED: fentaNYL INJECTION 100 MCG/2 ML AMP IVP ONE ×2 (16:00→18:30)
[2020-06-03] MEDS ORDERED: ONDANSETRON 4 MG/2 ML (SDV) Z0FRAN IVP ONE (16:00)
--- NOTE | 2020-06-03 16:00 | ED GU-Female ---
General Stated Complaint: L SIDE FLANK PAIN/DIFF URINATING/NAUSEA Source: patient Exam Limitations: no limitations History of Present Illness Date Seen by Provider: Jun 03, 2020 Time Seen by Provider: 15:49 Initial Comments Patient presents ER by private conveyance from home with chief complaint that since last night she started having left flank pain dysuria hematuria nausea. She took some Tylenol with mild relief of pain. She has a history of kidney stones and feels like she is trying to pass one presently. No fevers or chills. She has a history of medullary sponge kidney. She does not use NSAIDs. Allergies and Home Medications Allergies Coded Allergies: Sulfa (Sulfonamide Antibiotics) (Unverified Allergy, Mild, HIVES, 11/28/19) Home Medications Acetaminophen 325 Mg Tablet, 650 MG PO Q6H PRN for PAIN-MILD (1-4), (Reported) Albuterol Sulfate 1 Puff Puff, 2 PUFF IH Q4H PRN for SHORTNESS OF BREATH, (Reported) Cefuroxime Axetil 250 Mg Tablet, 250 MG PO BID Prescribed by: JOVITA MOORE on 03/30/20 1620 Cephalexin 500 Mg Capsule, 500 MG PO BID Prescribed by: BALTAZAR DEJESUS on 11/30/19 1142 Cephalexin 500 Mg Tablet, 500 MG PO BID Prescribed by: SHRUTHI JIANG on 06/03/20 182 Hydrochlorothiazide 12.5 Mg Tablet, 12.5 MG PO BID, (Reported) Hydrocodone/Acetaminophen 1 Each Tablet, 1 EACH PO Q4H PRN for PAIN-MODERATE (5- 7) Prescribed by: JOVITA MOORE on 03/30/20 1620 Hydrocodone/Acetaminophen 1 Each Tablet, 1 TAB PO Q4H PRN for PAIN-MODERATE (5- 7) Prescribed by: SHRUTHI JIANG on 06/03/20 182 Ibuprofen 200 Mg Tablet, 200 MG PO Q6H PRN for PAIN-MILD (1-4), (Reported) L.acidoph & Paracasei,B.lactis 1 Each Capsule, 1 EACH PO BID Prescribed by: SHRUTHI JIANG on 06/03/201825 Ondansetron 4 Mg Tab.rapdis, 4-8 MG PO Q6H PRN for NAUSEA/VOMITING Prescribed by: SHURTHI JIANG on 06/03/201825 Patient Home Medication List Home Medication List Reviewed: Yes Review of Systems Review of Systems Constitutional: No chills, No diaphoresis, No fever EENTM: No ear discharge, No ear pain Respiratory: No cough, No short of breath Cardiovascular: No chest pain, No edema, No palpitations Gastrointestinal: No abdominal pain, No nausea Genitourinary: see HPI; denies burning, denies dysuria Musculoskeletal: back pain; No joint pain Past Lwnnegr-Gwfiub-Nsxxwh Hx Patient Social History Alcohol Use: Occasionally Uses Alcohol Beverage of Choice: Beer Smoking Status: Former Smoker Type Used: Cigarettes Former Smoker, Quit: May 21, 2011 2nd Hand Smoke Exposure: No Recent Hopitalizations: No Immunizations Up To Date Tetanus Booster (TDap): Unknown Seasonal Allergies Seasonal Allergies: No Past Medical History Surgeries: Yes (KIDNEY STONE) Section, Tubal Ligation Respiratory: No Cardiac: No Hypertension Neurological: No Reproductive Disorders: No [employer] History: Tubal Ligation Sexually Transmitted Disease: No Genitourinary: Yes Kidney Infection, Kidney Stones Gastrointestinal: No Musculoskeletal: No Endocrine: No HEENT: No Cancer: No Psychosocial: No Integumentary: No Blood Disorders: No Family Medical History No Pertinent Family Hx Physical Exam Vital Signs Vital Signs - First Documented 06/03/20 15:54 Temp 36.2 Pulse 108 Resp 18 B/P (MAP) 122/85 (97) Pulse Ox 98 Capillary Refill : Height, Weight, BMI Height: '" Weight: lbs. oz. kg; 37.00 BMI Method: General Appearance: WD/WN, mild distress HEENT: pharynx normal Neck: full range of motion, normal inspection Cardiovascular: normal peripheral pulses, regular rate, rhythm Respiratory: no respiratory distress, no accessory muscle use Back: no vertebral tenderness, CVA tenderness (L) Neurologic/Psychiatric: alert, oriented x 3 Skin: normal color, warm/dry Progress/Results/Core Measures Suspected Sepsis SIRS Temperature: Pulse: Respiratory Rate: Laboratory Tests 06/03/20 16:18: White Blood Count 13.2H Blood Pressure / Mean: Laboratory Tests 06/03/20 16:18: Creatinine 0.87, Platelet Count 340 Results/Orders Lab Results Laboratory Tests Test 06/03/20 15:47 06/03/20 16:18 Range/Units Urine Color YELLOW Urine Clarity SL CLOUDY Urine pH 7.0 5-9 Urine Specific [place] 1.010 L 1.016-1.022 Urine Protein NEGATIVE NEGATIVE Urine Glucose (UA) NEGATIVE NEGATIVE Urine Ketones NEGATIVE NEGATIVE Urine Nitrite POSITIVE H NEGATIVE Urine Bilirubin NEGATIVE NEGATIVE Urine Urobilinogen 0.2 < = 1.0 MG/DL Urine Leukocyte Esterase 3+ H NEGATIVE Urine RBC (Auto) 1+ H NEGATIVE Urine RBC NONE /HPF Urine WBC 25-50 H /HPF Urine Renal Epithelial Cells RARE /HPF Urine Crystals NONE /LPF Urine Bacteria LARGE H /HPF Urine Casts NONE /LPF Urine Mucus NEGATIVE /LPF Urine Culture Indicated YES Urine Test NEGATIVE NEGATIVE White Blood Count 13.2 H 4.3-11.0 10^3/uL Red Blood Count 5.16 H 3.80-5.11 10^6/uL Hemoglobin 14.9 11.5-16.0 g/dL Hematocrit 45 35-52 % Mean Corpuscular Volume 86 80-99 fL Mean Corpuscular Hemoglobin 29 25-34 pg Mean Corpuscular Hemoglobin Concent 34 32-36 g/dL Red Cell Distribution Width 13.1 10.0-14.5 % Platelet Count 340 130-400 10^3/uL Mean Platelet Volume 9.8 9.0-12.2 fL Immature Granulocyte % (Auto) 0 % Neutrophils (%) (Auto) 91 H 42-75 % Lymphocytes (%) (Auto) 6 L 12-44 % Monocytes (%) (Auto) 1 0-12 % Eosinophils (%) (Auto) 1 0-10 % Basophils (%) (Auto) 0 0-10 % Neutrophils # (Auto) 11.9 H 1.8-7.8 10^3/uL Lymphocytes # (Auto) 0.8 L 1.0-4.0 10^3/uL Monocytes # (Auto) 0.2 0.0-1.0 10^3/uL Eosinophils # (Auto) 0.2 0.0-0.3 10^3/uL Basophils # (Auto) 0.0 0.0-0.1 10^3/uL Immature Granulocyte # (Auto) 0.0 0.0-0.1 10^3/uL Neutrophils % (Manual) 74 % Lymphocytes % (Manual) 20 % Monocytes % (Manual) 1 % Eosinophils % (Manual) 1 % Band Neutrophils 4 % Blood Morphology Comment NORMAL Sodium Level 139 135-145 MMOL/L Potassium Level 3.7 3.6-5.0 MMOL/L Chloride Level 104 98-107 MMOL/L Carbon Dioxide Level 25 21-32 MMOL/L Anion Gap 10 5-14 MMOL/L Blood Urea Nitrogen 9 7-18 MG/DL Creatinine 0.87 0.60-1.30 MG/DL Estimat Glomerular Filtration Rate > 60 BUN/Creatinine Ratio 10 Glucose Level 98 70-105 MG/DL Calcium Level 9.2 8.5-10.1 MG/DL My Orders Orders - SHRUTHI JIANG Ua Culture If Indicated (06/03/20 15:44) Ed Iv/Invasive Line Start (06/03/20 15:51) Ondansetron Injection (Zofran Injectio (06/03/20 16:00) Fentanyl Injection (Sublimaze Injection (06/03/20 16:00) Ct Abd/Pelvis Wo(Kidney Stone) (06/03/20 15:51) Hcg,Qualitative Urine (06/03/20 16:06) Urine Culture (06/03/20 15:47) Cbc With Automated Diff (06/03/20 16:34) Basic Metabolic Panel (06/03/20 16:34) Manual Differential (06/03/20 16:18) Medications Given in ED Current Medications Medications Dose Ordered Sig/Darrius Route Start Time Stop Time Status Last Admin Dose Admin Fentanyl Citrate 50 mcg ONCE ONCE IVP 06/03/20 16:00 06/03/20 16:01 DC 06/03/20 16:16 50 MCG Ondansetron HCl 8 mg ONCE ONCE IVP 06/03/20 16:00 06/03/20 16:01 DC 06/03/20 16:16 8 MG Vital Signs/I&O 06/03/20 15:54 Temp 36.2 Pulse 108 Resp 18 B/P (MAP) 122/85 (97) Pulse Ox 98 Capillary Refill : Progress Note #1: Time: 16:00 Progress Note Fentanyl and Zofran for pain and nausea. Urinalysis had a CT scan without IV contrast done for kidney stones. Progress Note #2: Time: 18:14 Progress Note Pain is significantly improved and she is more comfortable resting in bed. Plan to give her a dose of Rocephin. Did offer her a stay for observation for pain management but she says she think she will be fine and she has an appointment on with her urologist. We encouraged her to call and make contact with the urologist about potentially setting up management in case her stones or not passing easily. She is familiar with passing kidney stones. We will give her a strainer and send some scripts to the pharmacy. We are sending her home with some ondansetron and hydrocodone. Diagnostic Imaging Diagonstic Imaging: CT Plain Films/CT/US/NM/MRI: abdomen, pelvis Comments NAME: BEATA CHOUDHURY [facility] REC#: [id number] PT STATUS: REG ER : 1985 PHYSICIAN: SHRUTHI JIANG MD ADMIT DATE: 06/03/20/ER Signed Date of Exam:06/03/20 CT ABD/PELVIS WO(KIDNEY STONE) INDICATION: Left flank pain. History of stones. Prior lithotripsy. EXAMINATION: CT abdomen and pelvis without contrast, 06/03/2020. All CT scans use one or more of the following dose optimizing techniques: automated exposure control, MA and/or KvP adjustment based on patient size and exam type or iterative reconstruction. COMPARISON: 03/30/2020. FINDINGS: There are innumerable stones diffusely throughout both kidneys with a process such as medullary sponge kidney not excluded. There is a rounded density within the mid right kidney with peripheral calcifications noted. This is better characterized with contrast or sonography non-emergently. There is moderate left hydroureteronephrosis. There appears to be a cluster of stones or a single irregular stone in the distal left ureter just proximal to the UVJ which measures 6.6 mm in greatest dimension. A punctate stone is noted at the right UVJ with no hydronephrosis on the right. There is mild perinephric fat stranding about the left kidney, pyelonephritis should be clinically excluded. The remaining abdominal viscera limited due to the lack of contrast with fatty infiltration seen throughout the liver. The spleen and gallbladder are unremarkable. The pancreas and adrenal glands unremarkable. There is mild wall thickening of the urinary bladder which could be due to incomplete distention versus cystitis. There is evidence of likely previous appendectomy. No free air. No free fluid. Visualized lung bases unremarkable. There is no acute osseous abnormality. IMPRESSION: 1. Stones in the distal ureters, bilaterally, causing moderate left hydroureteronephrosis. 2. Marked bilateral nephrolithiasis with medullary sponge kidneys not excluded. 3. Polynephritis and cystitis should be clinically excluded. Other findings as above. Dictated by: Dictated on workstation # [id number] Dict: 06/03/20 164 Trans: 06/03/201710 [facility] [id number] Interpreted by: LATANYA PINEDA MD Electronically signed by: LATANYA PINEDA MD 06/03/201710 Reviewed: Reviewed by Me Departure Impression Primary Impression: Bilateral ureteral calculi Additional Impression: UTI (urinary tract infection) Qualified Codes: N30.01 - Acute cystitis with hematuria Disposition: HOME, SELF-CARE Condition: Improved Departure-Patient Inst. Decision time for Depature: 18:22 Referrals: CLAUDE HAYES MD (PCP/Family) Primary Care Physician Patient Instructions: Kidney Stones (DC), How to Strain Your Urine Add. Discharge Instructions: You have a bladder infection. We gave you a dose of antibiotics tonight and tomorrow you can start taking Keflex twice a day for the next 10 days. 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 You have a 6.6 mm either stone or cluster of stones in the left distal ureter and a punctate stone in the right ureter. Call your urologist tomorrow and let them know what you are dealing with and keep your follow-up appointment on . Strain your urine to see if you collect the stones this will give you some idea when your symptoms should improve. Heat and topical creams of your back can be helpful. Drink lots of fluids. Continue taking your medications as prescribed. Hydrocodone 1 tablet every 4 hours as necessary for pain. Tylenol 650 mg every 8 hours as necessary for pain. Ondansetron 1 to 2 tablets every 6 hours as necessary for nausea. If it anytime you are having intractable pain, nausea or you develop a fever above 100.3 degrees then you need to return to the nearest ER promptly. Scripts L.acidoph & Paracasei,B.lactis (Probiotic) 1 Each Capsule 1 EACH PO BID for 14 Days, #30 CAP 0 Refills Prov: SHRUTHI JIANG 06/03/20 Hydrocodone/Acetaminophen (Hydrocodone-Acetamin 5-325 mg) 1 Each Tablet 1 TAB PO Q4H PRN for PAIN-MODERATE (5-7), #20 TAB 0 Refills Prov: SHRUTHI JIANG 06/03/20 Cephalexin (Cephalexin) 500 Mg Tablet 500 MG PO BID for 10 Days, #20 TAB 0 Refills Prov: SHRUTHI JIANG 06/03/20 Ondansetron (Ondansetron Odt) 4 Mg Tab.rapdis 4-8 MG PO Q6H PRN for NAUSEA/VOMITING, #15 TAB 0 Refills Prov: SHRUTHI JIANG 06/03/20 Work/School Note: Work Release Form Date Seen in the Emergency Department: Jun 03, 2020 Return to Work: Jun 08, 2020 Restrictions: No Restrictions SHRUTHI JIANG Jun 03, 2020 15:59
[2020-06-03 16:07] LABS: BACTERIA,URINE LARGE /HPF; RENAL EPITHELIAL CELLS,URINE RARE /HPF; WBC,URINE 25-50 /HPF
[2020-06-03 16:40] LABS: BASOPHILS % (AUTO) 0 % (0-10); EOSINOPHILS # (AUTO) 0.2 10^3/uL (0.0-0.3); EOSINOPHILS % (AUTO) 1 % (0-10); HEMATOCRIT 45 % (35-52); HEMOGLOBIN 14.9 g/dL (11.5-16.0); LYMPHOCYTES # (AUTO) 0.8 10^3/uL (1.0-4.0); LYMPHOCYTES % (AUTO) 6 % (12-44); MEAN CORPUSCULAR HEMOGLOBIN 29 pg (25-34); MEAN CORPUSCULAR HGB CONC 34 g/dL (32-36); MEAN CORPUSCULAR VOLUME 86 fL (80-99); MEAN PLATELET VOLUME 9.8 fL (9.0-12.2); MONOCYTES # (AUTO) 0.2 10^3/uL (0.0-1.0); MONOCYTES % (AUTO) 1 % (0-12); NEUTROPHILS # (AUTO) 11.9 10^3/uL (1.8-7.8); NEUTROPHILS % (AUTO) 91 % (42-75); PLATELET COUNT 340 10^3/uL (130-400); WHITE BLOOD COUNT 13.2 10^3/uL (4.3-11.0)
[2020-06-03 16:45] LABS: CHLORIDE 104 MMOL/L (98-107); POTASSIUM 3.7 MMOL/L (3.6-5.0); SODIUM 139 MMOL/L (135-145)
[2020-06-03 16:46] LABS: CALCIUM 9.2 MG/DL (8.5-10.1); GLUCOSE 98 MG/DL (70-105)
[2020-06-03 16:48] LABS: CARBON DIOXIDE 25 MMOL/L (21-32)
[2020-06-03 16:50] LABS: CREATININE SERUM 0.87 MG/DL (0.60-1.30); GFR ESTIMATED > 60
[2020-06-03 16:51] LABS: BUN/CREATININE RATIO 10
[2020-06-03 16:54] LABS: BAND NEUTROPHILS 4 %; EOSINOPHILS % (MANUAL) 1 %; LYMPHOCYTES % (MANUAL) 20 %; MONOCYTES % (MANUAL) 1 %; NEUTROPHILS % (MANUAL) 74 %; RBC MORPH NORMAL
--- NOTE | 2020-06-03 17:01 | Diagnostic Imaging Report ---
INDICATION: Left flank pain. History of stones. Prior lithotripsy. EXAMINATION: CT abdomen and pelvis without contrast, 06/03/2020. All CT scans use one or more of the following dose optimizing techniques: automated exposure control, MA and/or KvP adjustment based on patient size and exam type or iterative reconstruction. COMPARISON: 03/30/2020. FINDINGS: There are innumerable stones diffusely throughout both kidneys with a process such as medullary sponge kidney not excluded. There is a rounded density within the mid right kidney with peripheral calcifications noted. This is better characterized with contrast or sonography non-emergently. There is moderate left hydroureteronephrosis. There appears to be a cluster of stones or a single irregular stone in the distal left ureter just proximal to the UVJ which measures 6.6 mm in greatest dimension. A punctate stone is noted at the right UVJ with no hydronephrosis on the right. There is mild perinephric fat stranding about the left kidney, pyelonephritis should be clinically excluded. The remaining abdominal viscera limited due to the lack of contrast with fatty infiltration seen throughout the liver. The spleen and gallbladder are unremarkable. The pancreas and adrenal glands unremarkable. There is mild wall thickening of the urinary bladder which could be due to incomplete distention versus cystitis. There is evidence of likely previous appendectomy. No free air. No free fluid. Visualized lung bases unremarkable. There is no acute osseous abnormality. IMPRESSION: 1. Stones in the distal ureters, bilaterally, causing moderate left hydroureteronephrosis. 2. Marked bilateral nephrolithiasis with medullary sponge kidneys not excluded. 3. Polynephritis and cystitis should be clinically excluded. Other findings as above. Dictated by: Dictated on workstation # [id number]
[2020-06-03] MEDS ORDERED: L.AC1CAP6 PO (18:26)
[2020-06-03] MEDS ORDERED: ONDA4TAB11 PO (18:26)
[2020-06-03] MEDS ORDERED: CEPH500T PO (18:26)
[2020-06-03] MEDS ORDERED: ACHD5005 PO (18:26)
[2020-06-03] MEDS ORDERED: RX-HYDROCODONE/APAP 5/325 MG #4 TAB PK PO PRN (18:30)
[2020-06-03] MEDS ORDERED: RX-ONDANSETRON 4 MG ODT (ZOFRAN) PPK #4 PO STA (18:30)
[2020-06-03 18:49] VITALS: BP 120/80
== END 2020-06-03 18:49 | disposition home or self-care (01) ==
LOC: EDUNIT# 15:42 → ER 15:44
DX: N13.2 Hydronephrosis with renal and ureteral calculous obstruction (principal); I10 Essential (primary) hypertension; Z98.51 Tubal ligation status; Z87.891 Personal history of nicotine dependence; Z88.2 Allergy status to sulfonamides; Z32.02 Encounter for pregnancy test, result negative
CPT/HCPCS: 36415; 74176; 80048; 81000; 84703; 85007; 85027; 87077; 87088

== ENCOUNTER 2021-06-09 19:21 | Emergency (ER) | payer BC, OTHER ==
[~2021-06-09] VITALS: Ht 170.1 cm; Wt 116.4 kg
[~2021-06-09 19:21] MED LIST changes: +CEPH500T PO; +L.AC1CAP6 PO
[2021-06-09] MEDS ORDERED: KETOROLAC 30 MG/ML VIAL IVP STA (19:40)
[2021-06-09] MEDS ORDERED: LACTATED RINGERS 1,000 ML IV ONE (19:45)
--- NOTE | 2021-06-09 19:46 | ED GU-Female ---
General Stated Complaint: LOWER RIGHT SIDE BACK PAIN Source: patient History of Present Illness Date Seen by Provider: Jun 09, 2021 Time Seen by Provider: 19:32 Initial Comments PT ARRIVES VIA POV FROM HOME PT STATES SHE THINKS SHE IS PASSING ANOTHER KIDNEY STONE HAS HAD RIGHT FLANK PAIN SINCE THIS AM C/O URINARY URGENCY, FREQUENCY, SMALL AMOUNTS AND PRESSURE OVER BLADDER WHEN SHE URINATES HAD TEMP OF 99.3 AT HOME NO NAUSEA/VOMITING PT HAS HISTORY OF MEDULLARY SPONGE KIDNEY AND HAS HAD MULTIPLE KIDNEY STONES, WITH LITHOTRIPSY X 3--LAST TIME WAS MAY 2020. HAS HAD MULTIPLE URETERAL STENTS AND CYSTOSCOPIES. TOOK TYLENOL 5 HOURS AGO WITHOUT RELIEF LMP --ENDED LAST WEEK. HAS HAD BTL. PT HAS ALSO HAD X 3 AND APPENDECTOMY [place] Allergies and Home Medications Allergies Coded Allergies: Sulfa (Sulfonamide Antibiotics) (Unverified Allergy, Mild, HIVES, 11/28/19) Patient Home Medication List Home Medication List Reviewed: Yes Acetaminophen (Tylenol) 325 Mg Tablet, 650 MG PO Q6H PRN for PAIN-MILD (1-4), (Reported) Entered as Reported by: DANDRE GODOY on 11/28/19 1306 Albuterol Sulfate (Proair Hfa) 1 Puff Puff, 2 PUFF IH Q4H PRN for SHORTNESS OF BREATH, (Reported) Entered as Reported by: DANDRE GODOY on 11/28/19 1306 Cefdinir (Cefdinir) 300 Mg Capsule, 300 MG PO BID Prescribed by: EVARISTO PATEL on 06/09/212034 Cefuroxime Axetil (Cefuroxime) 250 Mg Tablet, 250 MG PO BID Prescribed by: JOVITA MOORE on 03/30/20 1620 Cephalexin (Keflex) 500 Mg Capsule, 500 MG PO BID Prescribed by: BALTAZAR DEJESUS on 11/30/19 1142 Cephalexin (Cephalexin) 500 Mg Tablet, 500 MG PO BID Prescribed by: SHRUTHI JIANG on 06/03/20 1826 Hydrochlorothiazide (Hydrochlorothiazide) 12.5 Mg Tablet, 12.5 MG PO BID, (Reported) Entered as Reported by: DANDRE GODOY on 11/28/19 1306 Hydrocodone/Acetaminophen (Hydrocodone-Acetamin 5-325 mg) 1 Each Tablet, 1 EACH PO Q4H PRN for PAIN-MODERATE (5-7) Prescribed by: JOVITA MOORE on 03/30/20 1620 Hydrocodone/Acetaminophen (Hydrocodone-Acetamin 5-325 mg) 1 Each Tablet, 1 TAB PO Q4H PRN for PAIN-MODERATE (5-7) Prescribed by: SHRUTHI JIANG on 06/03/201826 Hydrocodone/Acetaminophen (Hydrocodone-Acetamin 5-325 mg) 1 Each Tablet, 1 EACH PO Q4-6 HOURS PRN for PAIN Prescribed by: EVARISTO PATEL on 06/09/212035 Ibuprofen (Ibuprofen) 200 Mg Tablet, 200 MG PO Q6H PRN for PAIN-MILD (1-4), (Reported) Entered as Reported by: DANDRE GODOY on 11/28/19 132 Ketorolac Tromethamine (Ketorolac Tromethamine) 10 Mg Tablet, 10 MG PO Q6H Prescribed by: EVARISTO PATEL on 06/09/212034 L.acidoph & Paracasei,B.lactis (Probiotic) 1 Each Capsule, 1 EACH PO BID Prescribed by: SHRUTHI JIANG on 06/03/201825 Ondansetron (Ondansetron Odt) 4 Mg Tab.rapdis, 4-8 MG PO Q6H PRN for NAUSEA/VOMITING Prescribed by: SHRUTHI JIANG on 06/03/201825 Review of Systems Review of Systems Constitutional: see HPI, fever Respiratory: no symptoms reported Cardiovascular: no symptoms reported Gastrointestinal: see HPI, other (RIGHT FLANK PAIN ) Genitourinary: see HPI Musculoskeletal: see HPI, back pain Skin: no symptoms reported Psychiatric/Neurological: No Symptoms Reported Endocrine: No Symptoms Reported Hematologic/Lymphatic: No Symptoms Reported Past Ljehvkn-Vnwkpc-Oshkcj Hx Immunizations Up To Date Tetanus Booster (TDap): Unknown Seasonal Allergies Seasonal Allergies: No Past Medical History Surgeries: Yes (LITHOTRIPSIES, URETERAL STENTS, CYSTOSCOPIES, KIDNEY STONE REMOVALS;C-S X 3) Appendectomy, Section, Renal, Tubal Ligation Respiratory: No Cardiac: No Hypertension Neurological: No : No Reproductive Disorders: No 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 oz. kg; 37.00 BMI Method: General Appearance: WD/WN, no apparent distress, obese, other (LAYING OUTSTRETCHED, DOES NOT APPEAR TO BE IN ANY DISCOMFORT OR DISTRESS) Cardiovascular: regular rate, rhythm, no murmur Respiratory: normal breath sounds Gastrointestinal: normal bowel sounds, non tender, soft Back: no vertebral tenderness, CVA tenderness (R) Extremities: normal inspection Neurologic/Psychiatric: no motor/sensory deficits, alert, normal mood/affect Skin: normal color, warm/dry, tattoos/piercings (TATTOOS) Progress/Results/Core Measures Suspected Sepsis SIRS Temperature: Pulse: Respiratory Rate: Laboratory Tests 06/09/21 19:44: White Blood Count 7.4 Blood Pressure / Mean: Laboratory Tests 06/09/21 19:44: Creatinine 0.80, Platelet Count 323, Total Bilirubin 0.4 Results/Orders Lab Results Laboratory Tests Test 06/09/21 19:31 06/09/21 19:44 Range/Units Urine Color YELLOW Urine Clarity CLEAR Urine pH 7.5 5-9 Urine Specific [place] 1.020 1.016-1.022 Urine Protein NEGATIVE NEGATIVE Urine Glucose (UA) NEGATIVE NEGATIVE Urine Ketones NEGATIVE NEGATIVE Urine Nitrite NEGATIVE NEGATIVE Urine Bilirubin NEGATIVE NEGATIVE Urine Urobilinogen 0.2 < = 1.0 MG/DL Urine Leukocyte Esterase 1+ H NEGATIVE Urine RBC (Auto) 1+ H NEGATIVE Urine RBC 5-10 H /HPF Urine WBC 10-25 H /HPF Urine Squamous Epithelial Cells 5-10 /HPF Urine Crystals NONE /LPF Urine Bacteria MODERATE H /HPF Urine Casts NONE /LPF Urine Mucus SMALL H /LPF Urine Culture Indicated YES Urine Test NEGATIVE NEGATIVE Urine Opiates Screen NEGATIVE NEGATIVE Urine Oxycodone Screen NEGATIVE NEGATIVE Urine Methadone Screen NEGATIVE NEGATIVE Urine Propoxyphene Screen NEGATIVE NEGATIVE Urine Barbiturates Screen NEGATIVE NEGATIVE Ur Tricyclic Antidepressants Screen NEGATIVE NEGATIVE Urine Phencyclidine Screen NEGATIVE NEGATIVE Urine Amphetamines Screen NEGATIVE NEGATIVE Urine Methamphetamines Screen NEGATIVE NEGATIVE Urine Benzodiazepines Screen NEGATIVE NEGATIVE Urine Cocaine Screen NEGATIVE NEGATIVE Urine Cannabinoids Screen NEGATIVE NEGATIVE White Blood Count 7.4 4.3-11.0 10^3/uL Red Blood Count 5.27 H 3.80-5.11 10^6/uL Hemoglobin 15.2 11.5-16.0 g/dL Hematocrit 45 35-52 % Mean Corpuscular Volume 85 80-99 fL Mean Corpuscular Hemoglobin 29 25-34 pg Mean Corpuscular Hemoglobin Concent 34 32-36 g/dL Red Cell Distribution Width 13.4 10.0-14.5 % Platelet Count 323 130-400 10^3/uL Mean Platelet Volume 9.7 9.0-12.2 fL Immature Granulocyte % (Auto) 1 % Neutrophils (%) (Auto) 75 42-75 % Lymphocytes (%) (Auto) 11 L 12-44 % Monocytes (%) (Auto) 9 0-12 % Eosinophils (%) (Auto) 4 0-10 % Basophils (%) (Auto) 1 0-10 % Neutrophils # (Auto) 5.5 1.8-7.8 10^3/uL Lymphocytes # (Auto) 0.8 L 1.0-4.0 10^3/uL Monocytes # (Auto) 0.7 0.0-1.0 10^3/uL Eosinophils # (Auto) 0.3 0.0-0.3 10^3/uL Basophils # (Auto) 0.1 0.0-0.1 10^3/uL Immature Granulocyte # (Auto) 0.0 0.0-0.1 10^3/uL Sodium Level 138 135-145 MMOL/L Potassium Level 3.7 3.6-5.0 MMOL/L Chloride Level 105 98-107 MMOL/L Carbon Dioxide Level 23 21-32 MMOL/L Anion Gap 10 5-14 MMOL/L Blood Urea Nitrogen 11 7-18 MG/DL Creatinine 0.80 0.60-1.30 MG/DL Estimat Glomerular Filtration Rate 98 BUN/Creatinine Ratio 14 Glucose Level 113 H 70-105 MG/DL Calcium Level 10.1 8.5-10.1 MG/DL Corrected Calcium 9.9 8.5-10.1 MG/DL Total Bilirubin 0.4 0.1-1.0 MG/DL Aspartate Amino Transf (AST/SGOT) 50 H 5-34 U/L Alanine Aminotransferase (ALT/SGPT) 63 H 0-55 U/L Alkaline Phosphatase 74 40-136 U/L Total Protein 7.6 6.4-8.2 GM/DL Albumin 4.2 3.2-4.5 GM/DL My Orders Orders - EVARISTO PATEL DO Ed Iv/Invasive Line Start (06/09/21 19:40) Ct Abd/Pelvis Wo(Kidney Stone) (06/09/21 19:40) Abdomen/Kub 1view (06/09/21 19:40) Cbc With Automated Diff (06/09/21 19:40) Comprehensive Metabolic Panel (06/09/21 19:40) Drug Screen Stat (Urine) (06/09/21 19:40) Hcg,Qualitative Urine (06/09/21 19:40) Ua Culture If Indicated (06/09/21 19:40) Ed Iv/Invasive Line Start (06/09/21 19:40) Lactated Ringers (Lr 1000 Ml Iv Solution (06/09/21 19:45) Ketorolac Injection (Toradol Injection) (06/09/21 19:40) Urine Culture (06/09/21 19:31) Ceftriaxone 1 Gm Pre-Mix (Rocephin 1 Gm (06/09/21 20:31) Rx-Hydrocodone/Apap 5-325 Mg (Rx-Vicodin (06/09/21 20:45) Medications Given in ED Current Medications Medications Dose Ordered Sig/Darrius Route Start Time Stop Time Status Last Admin Dose Admin Lactated Ringer's 1,000 ml @ 0 mls/hr Q0M ONCE IV 06/09/21 19:45 06/09/21 19:46 DC 06/09/21 20:25 999 MLS/HR Vital Signs/I&O 06/09/21 19:30 Temp 35.9 Pulse 114 Resp 20 B/P (MAP) 149/81 (103) Pulse Ox 96 O2 Delivery Room Air Capillary Refill : Diagnostic Imaging Comments CT ABDOMEN/PELVIS--PER RADIOLOGIST REPORT AT 2027 FINDINGS: There is mild left basilar atelectasis. Low density is seen throughout the liver indicating steatosis. Gallbladder is contracted but otherwise unremarkable. There is a moderate amount of foodstuff within the lumen of the stomach. No splenic abnormality is identified. The pancreas and adrenal glands are stable and unremarkable in appearance. 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 There is no evidence of calculus along the course of either ureter. Prominent cyst is noted in the midportion of the right kidney. There is no evidence of bladder stone. No focal inflammation or organized fluid collection is identified. The appendix is surgically absent. IMPRESSION: Hepatic steatosis and bilateral nephrolithiasis. There is no evidence of obstructive uropathy or other acute abnormality within the abdomen or pelvis. KUB--PER RADIOLOGIST REPORT AT 2032 FINDINGS: Overall bowel gas pattern is unremarkable. There is no significant change in bilateral nephrocalcinosis. No definite stone is seen along the course of either ureter. There is no evidence of bowel obstruction. No free intraperitoneal gas or pneumatosis is identified. IMPRESSION: Bilateral nephrolithiasis without definite stone seen along the course of either ureter. There is no bowel obstruction or other acute abnormality detected. Reviewed: Reviewed by Me Departure Impression Primary Impression: UTI (urinary tract infection) Additional Impressions: Nephrolithiasis INTRARENAL CALCIFICATIONS HX OF MEDULLARY SPONGE KIDNEY Disposition: HOME, SELF-CARE Condition: Stable Departure-Patient Inst. Decision time for Depature: 20:30 Referrals: CLAUDE HAYES MD (PCP/Family) Primary Care Physician Patient Instructions: Urinary Tract Infections in Adults, Flank Pain, Renal Colic (DC) Add. Discharge Instructions: LOTS OF CLEAR LIQUIDS FOLLOW UP WITH YOUR UROLOGIST THIS WEEK FOR FURTHER CARE Scripts Ketorolac Tromethamine (Ketorolac Tromethamine) 10 Mg Tablet 10 MG PO Q6H for Pain, #15 TAB Prov: EVARISTO PATEL K DO 06/09/21 Hydrocodone/Acetaminophen (Hydrocodone-Acetamin 5-325 mg) 1 Each Tablet 1 EACH PO Q4-6 HOURS PRN for PAIN, #12 TAB Prov: TREE PATELA K DO 06/09/21 Cefdinir (Cefdinir) 300 Mg Capsule 300 MG PO BID, #20 CAP Prov: TREE PATELA K DO 06/09/21 TREE PATELA K DO Jun 09, 2021 19:46
[2021-06-09 19:52] LABS: BASOPHILS # (AUTO) 0.1 10^3/uL (0.0-0.1); BASOPHILS % (AUTO) 1 % (0-10); EOSINOPHILS # (AUTO) 0.3 10^3/uL (0.0-0.3); EOSINOPHILS % (AUTO) 4 % (0-10); HEMATOCRIT 45 % (35-52); HEMOGLOBIN 15.2 g/dL (11.5-16.0); LYMPHOCYTES # (AUTO) 0.8 10^3/uL (1.0-4.0); LYMPHOCYTES % (AUTO) 11 % (12-44); MEAN CORPUSCULAR HEMOGLOBIN 29 pg (25-34); MEAN CORPUSCULAR HGB CONC 34 g/dL (32-36); MEAN CORPUSCULAR VOLUME 85 fL (80-99); MEAN PLATELET VOLUME 9.7 fL (9.0-12.2); MONOCYTES # (AUTO) 0.7 10^3/uL (0.0-1.0); MONOCYTES % (AUTO) 9 % (0-12); NEUTROPHILS # (AUTO) 5.5 10^3/uL (1.8-7.8); NEUTROPHILS % (AUTO) 75 % (42-75); PLATELET COUNT 323 10^3/uL (130-400); WHITE BLOOD COUNT 7.4 10^3/uL (4.3-11.0)
[2021-06-09 19:53] LABS: BILIRUBIN,URINE NEGATIVE (NEGATIVE); CLARITY,URINE CLEAR; COLOR,URINE YELLOW; GLUCOSE, URINE (UA) NEGATIVE (NEGATIVE); KETONES,URINE NEGATIVE (NEGATIVE); LEUKOCYTE ESTERASE ,URINE 1+ (NEGATIVE); NITRITE,URINE NEGATIVE (NEGATIVE); PH,URINE 7.5 (5-9); PROTEIN,URINE NEGATIVE (NEGATIVE)
[2021-06-09 20:00] LABS: ALBUMIN 4.2 GM/DL (3.2-4.5)
[2021-06-09 20:01] LABS: POTASSIUM 3.7 MMOL/L (3.6-5.0)
[2021-06-09 20:02] LABS: CALCIUM 10.1 MG/DL (8.5-10.1)
[2021-06-09 20:03] LABS: TOTAL PROTEIN 7.6 GM/DL (6.4-8.2)
[2021-06-09 20:04] LABS: BACTERIA,URINE MODERATE /HPF
[2021-06-09 20:05] LABS: BILIRUBIN,TOTAL 0.4 MG/DL (0.1-1.0)
[2021-06-09 20:06] LABS: AMPHETAMINE SCREEN, URINE NEGATIVE (NEGATIVE); BARBITURATE SCREEN URINE NEGATIVE (NEGATIVE); BENZODIAZEPINES SCREEN URINE NEGATIVE (NEGATIVE); CANNABINOID SCREEN, URINE NEGATIVE (NEGATIVE); COCAINE SCREEN URINE NEGATIVE (NEGATIVE); HCG,QUALITATIVE URINE NEGATIVE (NEGATIVE); METHADONE STAT NEGATIVE (NEGATIVE); METHAMPHETAMINE SCREEN URINE S NEGATIVE (NEGATIVE); OPIATE SCREEN URINE NEGATIVE (NEGATIVE); OXYCODONE STAT NEGATIVE (NEGATIVE); PROPOXYPHENE STAT NEGATIVE (NEGATIVE); TRICYCLIC ANTIDEPRESSANTS SCRE NEGATIVE (NEGATIVE)
[2021-06-09 20:07] LABS: CREATININE SERUM 0.8 MG/DL (0.60-1.30)
--- NOTE | 2021-06-09 20:25 | Diagnostic Imaging Report ---
PROCEDURE: CT urinary tract, rule out kidney stone. TECHNIQUE: Multiple contiguous axial images were obtained through the abdomen and pelvis without the use of intravenous contrast. Auto Exposure Controls were utilized during the CT exam to meet ALARA standards for radiation dose reduction. INDICATION: Flank pain. COMPARISON: 06/03/2020. FINDINGS: There is mild left basilar atelectasis. Low density is seen throughout the liver indicating steatosis. Gallbladder is contracted but otherwise unremarkable. There is a moderate amount of foodstuff within the lumen of the stomach. No splenic abnormality is identified. The pancreas and adrenal glands are stable and unremarkable in appearance. 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 There is no evidence of calculus along the course of either ureter. Prominent cyst is noted in the midportion of the right kidney. There is no evidence of bladder stone. No focal inflammation or organized fluid collection is identified. The appendix is surgically absent. IMPRESSION: Hepatic steatosis and bilateral nephrolithiasis. There is no evidence of obstructive uropathy or other acute abnormality within the abdomen or pelvis. Dictated by: Dictated on workstation # [id number]
--- NOTE | 2021-06-09 20:29 | Diagnostic Imaging Report ---
INDICATION: Abdominal pain. EXAMINATION: Supine images of the abdomen were obtained. COMPARISON: Study of 03/30/2020. FINDINGS: Overall bowel gas pattern is unremarkable. There is no significant change in bilateral nephrocalcinosis. No definite stone is seen along the course of either ureter. There is no evidence of bowel obstruction. No free intraperitoneal gas or pneumatosis is identified. IMPRESSION: Bilateral nephrolithiasis without definite stone seen along the course of either ureter. There is no bowel obstruction or other acute abnormality detected. Dictated by: Dictated on workstation # [id number]
[2021-06-09] MEDS ORDERED: cefTRIAXone 1 GM PRE-MIX 50 ML IV STA (20:31)
[2021-06-09] MEDS ORDERED: KETO10TA PO (20:35)
[2021-06-09] MEDS ORDERED: ACHD5005 PO (20:35)
[2021-06-09] MEDS ORDERED: CEFD300C3 PO (20:35)
[2021-06-09 22:18] VITALS: BP 134/67
== END 2021-06-09 22:21 | disposition home or self-care (01) ==
LOC: EDUNIT# 19:21 → ER 19:23
DX: N39.0 Urinary tract infection, site not specified (principal); N20.0 Calculus of kidney; N28.89 Other specified disorders of kidney and ureter; E66.9 Obesity, unspecified; Z68.37 Body mass index [BMI] 37.0-37.9, adult
CPT/HCPCS: 36415; 74018; 74176; 80053; 80306; 81000; 84703; 85025; 87077; 87088; 87186

== ENCOUNTER 2021-12-17 02:26 | Emergency (ER) | payer OTHER ==
[~2021-12-17] VITALS: Ht 170.1 cm; Wt 102.8 kg
[~2021-12-17 02:26] MED LIST changes: +KETO10TA PO
[2021-12-17] MEDS ORDERED: METOCLOPRAMIDE INJ 10 MG/2 ML (REGLAN) IVP STA (03:26)
[2021-12-17] MEDS ORDERED: LACTATED RINGERS 1,000 ML IV ONE (03:30)
--- NOTE | 2021-12-17 03:34 | ED GI ---
General Chief Complaint: Abdominal/GI Problems Stated Complaint: ABD PAIN,CONSTIPATION,VOMITING Source of Information: Patient History of Present Illness Date Seen by Provider: Dec 17, 2021 Time Seen by Provider: 03:10 Initial Comments PT ARRIVES VIA POV FROM HOME STATES SHE TESTED + FOR COVID 12/06/21--SYMPTOMS BEGAN AT 0400 ON 12/06/21 HAD "CHEST COLD" --COUGH, CONGESTION ALSO HAD GI SYMPTOMS OF NAUSEA/VOMITING/DIARRHEA C/O SORE THROAT FROM VOMITING NO FEVER STATES SHE HAS BEEN OUT OF QUARANTINE SINCE 12/12/21 STATES SHE DOES NOT HAVE COUGH OR CHEST CONGESTION ANYMORE HAS NOT HAD DIARRHEA X 1 WEEK STATES SHE IS STILL HAVING NAUSEA AND VOMITING AND BLOATING AFTER SHE EATS STATES SHE HAS A "SOUR STOMACH" AND BELCHING ALOT AND FOUL TASTE WHEN SHE BELCHES HAS SOME MILD INTERMITTENT CRAMPING WENT TO [facility] ON Thursday12/13/21 FOR THIS COMPLAINT AND WAS PRESCRIBED ZOFRAN . NO TESTS WERE DONE STATES IT IS NOT HELPING--LAST DOSE AT 1930 TONIGHT STATES SHE WENT TO WORK AT [employer] TODAY/YESTERDAY 12/16/21 FROM [id number] SHE HAD A DENIS AND CHEDDAR SANDWICH FROM [employer] AROUND 1700 AND WAS FINE LMP--BEGAN TODAY, HAS HAD BTL PT HAS ALSO HAD CHOLECYSTECTOMY, APPENDECTOMY, X3, AND LITHOTRIPSY X 3 PCP: DR. HAYES IN [place]. ALSO GOES TO [facility] HERE. Allergies and Home Medications Allergies Coded Allergies: Sulfa (Sulfonamide Antibiotics) (Unverified Allergy, Mild, HIVES, 11/28/19) Patient Home Medication List Home Medication List Reviewed: Yes Acetaminophen (Tylenol) 325 Mg Tablet, 650 MG PO Q6H PRN for PAIN-MILD (1-4), (Reported) Entered as Reported by: DANDRE GODOY on 11/28/19 1306 Albuterol Sulfate (Proair Hfa) 1 Puff Puff, 2 PUFF IH Q4H PRN for SHORTNESS OF BREATH, (Reported) Entered as Reported by: DANDRE GODOY on 11/28/19 1306 Cefdinir (Cefdinir) 300 Mg Capsule, 300 MG PO BID Prescribed by: EVARISTO PATEL on 06/09/212034 Cefuroxime Axetil (Cefuroxime) 250 Mg Tablet, 250 MG PO BID Prescribed by: JOVITA MOORE on 03/30/20 1620 Cephalexin (Keflex) 500 Mg Capsule, 500 MG PO BID Prescribed by: BALTAZAR DEJESUS on 11/30/19 1142 Cephalexin (Cephalexin) 500 Mg Tablet, 500 MG PO BID Prescribed by: SHRUTHI JIANG on 06/03/201825 Hydrochlorothiazide (Hydrochlorothiazide) 12.5 Mg Tablet, 12.5 MG PO BID, (Reported) Entered as Reported by: DANDRE GODOY on 11/28/19 1306 Hydrocodone/Acetaminophen (Hydrocodone-Acetamin 5-325 mg) 1 Each Tablet, 1 EACH PO Q4H PRN for PAIN-MODERATE (5-7) Prescribed by: JOVITA MOORE on 03/30/20 1620 Hydrocodone/Acetaminophen (Hydrocodone-Acetamin 5-325 mg) 1 Each Tablet, 1 TAB PO Q4H PRN for PAIN-MODERATE (5-7) Prescribed by: SHRUTHI JIANG on 06/03/201826 Hydrocodone/Acetaminophen (Hydrocodone-Acetamin 5-325 mg) 1 Each Tablet, 1 EACH PO Q4-6 HOURS PRN for PAIN Prescribed by: EVARISTO PATEL on 06/09/212035 Ibuprofen (Ibuprofen) 200 Mg Tablet, 200 MG PO Q6H PRN for PAIN-MILD (1-4), (Reported) Entered as Reported by: DANDRE GODOY on 11/28/19 1325 Ketorolac Tromethamine (Ketorolac Tromethamine) 10 Mg Tablet, 10 MG PO Q6H Prescribed by: EVARISTO PATEL on 06/09/212034 L.acidoph & Paracasei,B.lactis (Probiotic) 1 Each Capsule, 1 EACH PO BID Prescribed by: SHRUTHI JIANG on 06/03/201825 Nitrofurantoin Monohyd/M-Cryst (Macrobid 100 mg Capsule) 100 Mg Capsule, 1 TAB PO BID Prescribed by: EVARISTO PATEL on 12/17/21420 Ondansetron (Ondansetron Odt) 4 Mg Tab.rapdis, 4-8 MG PO Q6H PRN for NAUSEA/VOMITING Prescribed by: SHRUTHI JIANG on 06/03/201825 Review of Systems Review of Systems Constitutional: no symptoms reported EENTM: No Symptoms Reported Respiratory: No Symptoms Reported Cardiovascular: No Symptoms Reported Gastrointestinal: See HPI Genitourinary: No Symptoms Reported Musculoskeletal: no symptoms reported Skin: no symptoms reported Psychiatric/Neurological: No Symptoms Reported Endocrine: No Symptoms Reported Hematologic/Lymphatic: No Symptoms Reported Past Mxxcktl-Rpumyy-Rydfhk Hx Patient Social History Tobacco Use?: No Use of E-Cig and/or Vaping dev: No Substance use?: No Alcohol Use?: No Pt feels they are or have been: No Immunizations Up To Date Tetanus Booster (TDap): Unknown Influenza Vaccine Up-to-Date: No; Not Current First/Initial COVID19 Vaccinat: IN THE FALL VACC X2 Seasonal Allergies Seasonal Allergies: No Past Medical History Surgeries: Yes (LITHOTRIPSIES, URETERAL STENTS, CYSTOSCOPIES, KIDNEY STONE REMOVALS;C-S X 3) Appendectomy, Section, Gallbladder, Renal, Tubal Ligation Respiratory: No Cardiac: Yes Hypertension Neurological: No 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 oz. kg; 40.00 BMI Method: General Appearance: WD/WN HEENT: PERRL/EOMI Neck: normal inspection Respiratory: normal breath sounds, no respiratory distress, no accessory muscle use Cardiovascular: regular rate, rhythm, no murmur Gastrointestinal: normal bowel sounds, soft, tenderness (EPIGASTRIC) Extremities: normal inspection Back: no CVA tenderness Neurologic/Psychiatric: coper hand II-XII nml as tested, no motor/sensory deficits, alert, normal mood/affect, oriented x 3 Skin: normal color, warm/dry; No rash Progress/Results/Core Measures Results/Orders Lab Results Laboratory Tests Test 12/17/21 03:10 12/17/21 03:41 Range/Units Urine Color YELLOW Urine Clarity CLEAR Urine pH 7.5 5-9 Urine Specific [place] 1.010 L 1.016-1.022 Urine Protein TRACE H NEGATIVE Urine Glucose (UA) NEGATIVE NEGATIVE Urine Ketones NEGATIVE NEGATIVE Urine Nitrite NEGATIVE NEGATIVE Urine Bilirubin NEGATIVE NEGATIVE Urine Urobilinogen 2.0 < = 1.0 MG/DL Urine Leukocyte Esterase 3+ H NEGATIVE Urine RBC (Auto) 1+ H NEGATIVE Urine RBC 2-5 H /HPF Urine WBC >100 H /HPF Urine Squamous Epithelial Cells 0-2 /HPF Urine Crystals NONE /LPF Urine Bacteria FEW H /HPF Urine Casts NONE /LPF Urine Mucus SMALL H /LPF Urine Culture Indicated YES White Blood Count 9.5 4.3-11.0 10^3/uL Red Blood Count 5.25 H 3.80-5.11 10^6/uL Hemoglobin 15.4 11.5-16.0 g/dL Hematocrit 45 35-52 % Mean Corpuscular Volume 85 80-99 fL Mean Corpuscular Hemoglobin 29 25-34 pg Mean Corpuscular Hemoglobin Concent 35 32-36 g/dL Red Cell Distribution Width 13.1 10.0-14.5 % Platelet Count 376 130-400 10^3/uL Mean Platelet Volume 10.2 9.0-12.2 fL Immature Granulocyte % (Auto) 0 % Neutrophils (%) (Auto) 63 42-75 % Lymphocytes (%) (Auto) 24 12-44 % Monocytes (%) (Auto) 7 0-12 % Eosinophils (%) (Auto) 6 0-10 % Basophils (%) (Auto) 0 0-10 % Neutrophils # (Auto) 6.0 1.8-7.8 10^3/uL Lymphocytes # (Auto) 2.3 1.0-4.0 10^3/uL Monocytes # (Auto) 0.6 0.0-1.0 10^3/uL Eosinophils # (Auto) 0.6 H 0.0-0.3 10^3/uL Basophils # (Auto) 0.0 0.0-0.1 10^3/uL Immature Granulocyte # (Auto) 0.0 0.0-0.1 10^3/uL Sodium Level 140 135-145 MMOL/L Potassium Level 3.6 3.6-5.0 MMOL/L Chloride Level 105 98-107 MMOL/L Carbon Dioxide Level 22 21-32 MMOL/L Anion Gap 13 5-14 MMOL/L Blood Urea Nitrogen 10 7-18 MG/DL Creatinine 0.81 0.60-1.30 MG/DL Estimat Glomerular Filtration Rate 97 BUN/Creatinine Ratio 12 Glucose Level 98 70-105 MG/DL Calcium Level 9.6 8.5-10.1 MG/DL Corrected Calcium 9.5 8.5-10.1 MG/DL Magnesium Level 1.9 1.6-2.4 MG/DL Total Bilirubin 1.0 0.1-1.0 MG/DL Aspartate Amino Transf (AST/SGOT) 42 H 5-34 U/L Alanine Aminotransferase (ALT/SGPT) 60 H 0-55 U/L Alkaline Phosphatase 44 40-136 U/L Total Protein 7.2 6.4-8.2 GM/DL Albumin 4.1 3.2-4.5 GM/DL Amylase Level 67 25-125 U/L Lipase 45 8-78 U/L Serum Test, Qualitative NEGATIVE NEGATIVE My Orders Orders - EVARISTO PATEL DO Ed Iv/Invasive Line Start (12/17/21 03:26) Monitor-Rhythm Ecg Trace Only (12/17/21 03:26) Amylase (12/17/21 03:26) Cbc With Automated Diff (12/17/21 03:26) Comprehensive Metabolic Panel (12/17/21 03:26) Hcg,Qualitative Serum (12/17/21 03:26) Lipase (12/17/21 03:26) Magnesium (12/17/21 03:26) Ua Culture If Indicated (12/17/21 03:26) Ed Iv/Invasive Line Start (12/17/21 03:26) Lactated Ringers (Lr 1000 Ml Iv Solution (12/17/21 03:30) Metoclopramide Injection (Reglan Injecti (12/17/21 03:26) Urine Culture (12/17/21 03:10) Ceftriaxone 1 Gm Pre-Mix (Rocephin 1 Gm (12/17/21 03:48) Ct Abd/Pelvis Wo(Kidney Stone) (12/17/21 03:26) Medications Given in ED Current Medications Medications Dose Ordered Sig/Darrius Route Start Time Stop Time Status Last Admin Dose Admin Lactated Ringer's 1,000 ml @ 0 mls/hr Q0M ONCE IV 12/17/21 03:30 12/17/21 03:31 DC 12/17/21 03:41 999 MLS/HR Vital Signs/I&O 12/17/21 02:54 Temp 36.6 Pulse 84 Resp 20 B/P (MAP) 129/88 (102) Pulse Ox 96 O2 Delivery Room Air Progress Progress Note : Progress Note GIVEN IV FLUIDS, REGLAN AND ROCEPHIN 0420--PT WANTS TO LEAVE, STATES SHE FEELS "100 TIMES BETTER" AND DOES NOT WANT CT DONE AND JUST WANTS TO GO HOME AMA PAPERS SIGNED. WILL SEND HOME WITH RX FOR ANTIBIOTICS RETURN PRECAUTIONS DISCUSSED Departure Impression Primary Impression: Left against medical advice Additional Impressions: UTI (urinary tract infection) COVID-19 virus infection Disposition: 07 AGAINST MEDICAL ADVICE Condition: Against Medical Advice Departure-Patient Inst. Decision time for Depature: 04:20 Referrals: CLAUDE HAYES MD (PCP/Family) Primary Care Physician Patient Instructions: COVID-19 ED, Leaving Against Medical Advice, Urinary Tract Infection, Adult ED Add. Discharge Instructions: FOLLOW UP WITH YOUR DR THIS WEEK FOR FURTHER CARE All discharge instructions reviewed with patient and/or family. Voiced understanding. Scripts Nitrofurantoin Monohyd/M-Cryst (Macrobid 100 mg Capsule) 100 Mg Capsule 1 TAB PO BID, #20 CAP Prov: EVARISTO PATEL DO 12/17/21 EVARISTO PATEL DO Dec 17, 2021 03:34
[2021-12-17 03:40] LABS: CLARITY,URINE CLEAR; COLOR,URINE YELLOW; GLUCOSE, URINE (UA) NEGATIVE (NEGATIVE); PH,URINE 7.5 (5-9); PROTEIN,URINE TRACE (NEGATIVE)
[2021-12-17 03:41] LABS: BACTERIA,URINE FEW /HPF; BILIRUBIN,URINE NEGATIVE (NEGATIVE); KETONES,URINE NEGATIVE (NEGATIVE); LEUKOCYTE ESTERASE ,URINE 3+ (NEGATIVE); NITRITE,URINE NEGATIVE (NEGATIVE); SQUAMOUS EPITHELIAL CELL,UR 0-2 /HPF; WBC,URINE >100 /HPF
[2021-12-17] MEDS ORDERED: cefTRIAXone 1 GM PRE-MIX 50 ML IV STA (03:48)
[2021-12-17 03:51] LABS: BASOPHILS % (AUTO) 0 % (0-10); EOSINOPHILS # (AUTO) 0.6 10^3/uL (0.0-0.3); EOSINOPHILS % (AUTO) 6 % (0-10); HEMATOCRIT 45 % (35-52); HEMOGLOBIN 15.4 g/dL (11.5-16.0); LYMPHOCYTES # (AUTO) 2.3 10^3/uL (1.0-4.0); LYMPHOCYTES % (AUTO) 24 % (12-44); MEAN CORPUSCULAR HEMOGLOBIN 29 pg (25-34); MEAN CORPUSCULAR HGB CONC 35 g/dL (32-36); MEAN CORPUSCULAR VOLUME 85 fL (80-99); MEAN PLATELET VOLUME 10.2 fL (9.0-12.2); MONOCYTES # (AUTO) 0.6 10^3/uL (0.0-1.0); MONOCYTES % (AUTO) 7 % (0-12); NEUTROPHILS % (AUTO) 63 % (42-75); PLATELET COUNT 376 10^3/uL (130-400); WHITE BLOOD COUNT 9.5 10^3/uL (4.3-11.0)
[2021-12-17 04:03] LABS: ALBUMIN 4.1 GM/DL (3.2-4.5); POTASSIUM 3.6 MMOL/L (3.6-5.0)
[2021-12-17 04:05] LABS: CALCIUM 9.6 MG/DL (8.5-10.1)
[2021-12-17 04:06] LABS: TOTAL PROTEIN 7.2 GM/DL (6.4-8.2)
[2021-12-17 04:09] LABS: CREATININE SERUM 0.81 MG/DL (0.60-1.30)
[2021-12-17 04:13] LABS: MAGNESIUM 1.9 MG/DL (1.6-2.4)
[2021-12-17] MEDS ORDERED: NITR-65 PO (04:21)
[2021-12-17 04:27] VITALS: BP 134/86
== END 2021-12-17 04:27 | disposition left against medical advice (07) ==
LOC: EDUNIT# 02:26 → ER 02:32
DX: N39.0 Urinary tract infection, site not specified (principal); U07.1 COVID-19; Z88.2 Allergy status to sulfonamides; Z73.0 Burn-out
CPT/HCPCS: 36415; 80053; 81000; 82150; 83690; 83735; 84703; 85025; 87088; 93041

== ENCOUNTER 2022-06-22 20:10 | Emergency (ER) | payer OTHER ==
[~2022-06-22] VITALS: Ht 170 cm; Wt 99.7 kg
[~2022-06-22 20:10] MED LIST changes: +ALBU8.5H6 IH; +NITR-65 PO; -RT-ALBUINH IH
[2022-06-22] MEDS ORDERED: NS IV 1000 ML 1,000 ML IV STA (20:57)
[2022-06-22] MEDS ORDERED: KETOROLAC 30 MG/ML VIAL IVP ONE (21:00)
[2022-06-22 21:05] LABS: BILIRUBIN,URINE NEGATIVE (NEGATIVE); CLARITY,URINE CLEAR; COLOR,URINE YELLOW; GLUCOSE, URINE (UA) NEGATIVE (NEGATIVE); KETONES,URINE NEGATIVE (NEGATIVE); LEUKOCYTE ESTERASE ,URINE NEGATIVE (NEGATIVE); NITRITE,URINE NEGATIVE (NEGATIVE); PROTEIN,URINE NEGATIVE (NEGATIVE)
--- NOTE | 2022-06-22 21:11 | ED GI ---
General Chief Complaint: Abdominal/GI Problems Stated Complaint: BACK PAIN Nursing Triage Note: pt amb to ft3 with cc of right lower flank pain. pt states that she has had a hx of kidney stones. tylenol was taken at 1830 today. Source of Information: Patient Exam Limitations: No Limitations (REX OLIVER) History of Present Illness Date Seen by Provider: Jun 22, 2022 Time Seen by Provider: 21:09 Initial Comments Patient is a 37-year-old female who presents to the ED with right flank pain. Started around 6 PM with acute onset. Pain is described as sharp intermittent but has been constant over the past hour. Nausea without vomiting or diarrhea. History of medullary sponge kidney with frequent nephrolithiasis requiring lithotripsy, uroscopy. She has a history of cholecystectomy, appendectomy. Denies of any fever, chills, body aches. Took Tylenol at home without much improvement. She states this feels very similar to her kidney stone. Denies of any trauma or falls, bowel or urine incontinence, saddle paresthesia, lower extremity weakness, hematuria, increased urine frequency, dysuria. (REX OLIVER) Allergies and Home Medications Allergies Coded Allergies: Sulfa (Sulfonamide Antibiotics) (Unverified Allergy, Mild, HIVES, 11/28/19) Patient Home Medication List Home Medication List Reviewed: Yes (REX OLIVER) Acetaminophen (Tylenol) 325 Mg Tablet, 650 MG PO Q6H PRN for PAIN-MILD (1-4), (Reported) Entered as Reported by: DANDRE GODOY on 11/28/19 1306 Albuterol Sulfate (Ventolin Hfa) 1 Puff Puff, 2 PUFF IH Q4H PRN for SHORTNESS OF BREATH, (Reported) Entered as Reported by: DANDRE GODOY on 11/28/19 1306 Cefdinir (Cefdinir) 300 Mg Capsule, 300 MG PO BID Prescribed by: EVARISTO PATEL on 06/09/212034 Cefuroxime Axetil (Cefuroxime) 250 Mg Tablet, 250 MG PO BID Prescribed by: JOVITA MOORE on 03/30/20 162 Cephalexin (Keflex) 500 Mg Capsule, 500 MG PO BID Prescribed by: BALTAZAR DEJESUS on 11/30/19 1142 Cephalexin (Cephalexin) 500 Mg Tablet, 500 MG PO BID Prescribed by: SHRUTHI JIANG on 06/03/201825 Cephalexin (Cephalexin) 500 Mg Tablet, 500 MG PO BID Prescribed by: TERESA RIVERA on 06/22/222237 Hydrochlorothiazide (Hydrochlorothiazide) 12.5 Mg Tablet, 12.5 MG PO BID, (Reported) Entered as Reported by: DANDRE GODOY on 11/28/19 1306 Hydrocodone/Acetaminophen (Hydrocodone-Acetamin 5-325 mg) 1 Each Tablet, 1 EACH PO Q4H PRN for PAIN-MODERATE (5-7) Prescribed by: JOVITA MOORE on 03/30/20 1620 Hydrocodone/Acetaminophen (Hydrocodone-Acetamin 5-325 mg) 1 Each Tablet, 1 TAB PO Q4H PRN for PAIN-MODERATE (5-7) Prescribed by: SHRUTHI JIANG on 06/03/201826 Hydrocodone/Acetaminophen (Hydrocodone-Acetamin 5-325 mg) 1 Each Tablet, 1 EACH PO Q4-6 HOURS PRN for PAIN Prescribed by: EVARISTO PATEL on 06/09/212035 Hydrocodone/Acetaminophen (Hydrocodone-Acetamin 5-325 mg) 5 Mg-325 Mg Tablet, 1 TAB PO Q4H PRN for PAIN-MODERATE (5-7) Prescribed by: TERESA RIVERA on 06/22/222238 Ibuprofen (Ibuprofen) 200 Mg Tablet, 200 MG PO Q6H PRN for PAIN-MILD (1-4), (Reported) Entered as Reported by: DANDRE GODOY on 11/28/19 1325 Ketorolac Tromethamine (Ketorolac Tromethamine) 10 Mg Tablet, 10 MG PO Q6H Prescribed by: EVARISTO PATEL on 06/09/212034 L.acidoph & Paracasei,B.lactis (Probiotic) 1 Each Capsule, 1 EACH PO BID Prescribed by: SHRUTHI JIANG on 06/03/201825 Nitrofurantoin Monohyd/M-Cryst (Macrobid 100 mg Capsule) 100 Mg Capsule, 1 TAB PO BID Prescribed by: EVARISTO PATEL on 12/17/21 042 Ondansetron (Ondansetron Odt) 4 Mg Tab.rapdis, 4-8 MG PO Q6H PRN for NAUSEA/VOMITING Prescribed by: SHRUTHI JIANG on 06/03/201825 Ondansetron (Ondansetron Odt) 4 Mg Tab.rapdis, 4 MG SL Q4H PRN for NAUSEA/VO MITING Prescribed by: TERESA RIVERA on 06/22/222237 Tamsulosin HCl (Flomax) 0.4 Mg Cap, 0.4 MG PO DAILY Prescribed by: TERESA RIVERA on 06/22/222237 Review of Systems Review of Systems Constitutional: No chills, No diaphoresis, No fever, No malaise, No weakness EENTM: No Blurred Vision, No Eye Pain Respiratory: Denies Cough Cardiovascular: Denies Chest Pain Gastrointestinal: Abdominal Pain; Denies Diarrhea; Nausea; Denies Vomiting Genitourinary: Denies Burning, Denies Discharge, Denies Drainage Musculoskeletal: No back pain, No joint pain Skin: No change in color, No change in hair/nails (REX OLIVER) All Other Systems Reviewed Negative Unless Noted: Yes (REX OLIVER) Past Wnvtngr-Odcocq-Jbnbbn Hx Patient Social History Tobacco Use?: No Substance use?: No Alcohol Use?: Yes (REX OLIVER) Immunizations Up To Date Tetanus Booster (TDap): Unknown First/Initial COVID19 Vaccinat: IN THE FALL VACC X2 Second COVID19 Vaccination Js: IN THE FALL VACC X2 Third COVID19 Vaccination Date: IN THE FALL VACC X2 (REX OLIVER) Seasonal Allergies Seasonal Allergies: No (REX OLIVER) Past Medical History Surgeries: Yes (LITHOTRIPSIES, URETERAL STENTS, CYSTOSCOPIES, KIDNEY STONE REMOVALS;C-S X 3) Appendectomy, Section, Gallbladder, Renal, Tubal Ligation Respiratory: No Cardiac: Yes Hypertension Neurological: No Reproductive Disorders: No 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 Sexually Transmitted Disease: No Genitourinary: Yes (MEDULLARY SPONGE KIDNEY; MULTIPLE UROLOGICAL PROCEDURES) Kidney Infection, Bladder Infection, Kidney Stones Gastrointestinal: No Musculoskeletal: No Endocrine: No HEENT: No Cancer: No Psychosocial: Yes Anxiety Integumentary: No Blood Disorders: No (REX OLIVER) Family Medical History No Pertinent Family Hx (REX OLIVER) Physical Exam Vital Signs Vital Signs - First Documented 06/22/22 20:50 Pulse 72 B/P (MAP) 146/87 (106) Pulse Ox 99 O2 Delivery Room Air (CRYSTAL CHOI MD) Vital Signs Capillary Refill : (REX OLIVER) Height/Weight/BMI Height: '" Weight: lbs. oz. kg; 34.00 BMI Method: General Appearance: WD/WN, no apparent distress HEENT: PERRL/EOMI, normal ENT inspection, TMs normal, pharynx normal Neck: non-tender, full range of motion, supple Respiratory: chest non-tender, lungs clear, normal breath sounds, no respiratory distress Cardiovascular: regular rate, rhythm, no edema, no gallop Gastrointestinal: normal bowel sounds, non tender, soft, no organomegaly Extremities: normal range of motion, non-tender, normal inspection Back: normal inspection, CVA tenderness (R) Neurologic/Psychiatric: plasma center technician II-XII nml as tested, no motor/sensory deficits, alert, normal mood/affect, oriented x 3 (REX OLIVER) Progress/Results/Core Measures Results/Orders Lab Results Laboratory Tests Test 06/22/22 20:57 06/22/22 21:08 Range/Units Urine Color YELLOW Urine Clarity CLEAR Urine pH 6.0 5-9 Urine Specific [place] 1.025 H 1.016-1.022 Urine Protein NEGATIVE NEGATIVE Urine Glucose (UA) NEGATIVE NEGATIVE Urine Ketones NEGATIVE NEGATIVE Urine Nitrite NEGATIVE NEGATIVE Urine Bilirubin NEGATIVE NEGATIVE Urine Urobilinogen 0.2 < = 1.0 MG/DL Urine Leukocyte Esterase NEGATIVE NEGATIVE Urine RBC (Auto) TRACE-I H NEGATIVE Urine RBC 0-2 /HPF Urine WBC 2-5 /HPF Urine Squamous Epithelial Cells 10-25 H /HPF Urine Crystals NONE /LPF Urine Bacteria FEW H /HPF Urine Casts NONE /LPF Urine Mucus SMALL H /LPF Urine Culture Indicated NO White Blood Count 18.0 H 4.3-11.0 10^3/uL Red Blood Count 5.13 H 3.80-5.11 10^6/uL Hemoglobin 14.9 11.5-16.0 g/dL Hematocrit 44 35-52 % Mean Corpuscular Volume 85 80-99 fL Mean Corpuscular Hemoglobin 29 25-34 pg Mean Corpuscular Hemoglobin Concent 34 32-36 g/dL Red Cell Distribution Width 13.3 10.0-14.5 % Platelet Count 386 130-400 10^3/uL Mean Platelet Volume 9.4 9.0-12.2 fL Immature Granulocyte % (Auto) 0 % Neutrophils (%) (Auto) 73 42-75 % Lymphocytes (%) (Auto) 17 12-44 % Monocytes (%) (Auto) 7 0-12 % Eosinophils (%) (Auto) 3 0-10 % Basophils (%) (Auto) 1 0-10 % Neutrophils # (Auto) 13.1 H 1.8-7.8 10^3/uL Lymphocytes # (Auto) 3.0 1.0-4.0 10^3/uL Monocytes # (Auto) 1.2 H 0.0-1.0 10^3/uL Eosinophils # (Auto) 0.5 H 0.0-0.3 10^3/uL Basophils # (Auto) 0.1 0.0-0.1 10^3/uL Immature Granulocyte # (Auto) 0.1 0.0-0.1 10^3/uL Neutrophils % (Manual) 75 % Lymphocytes % (Manual) 20 % Monocytes % (Manual) 4 % Eosinophils % (Manual) 1 % Toxic Granulation 1+ Sodium Level 138 135-145 MMOL/L Potassium Level 3.5 L 3.6-5.0 MMOL/L Chloride Level 103 98-107 MMOL/L Carbon Dioxide Level 21 21-32 MMOL/L Anion Gap 14 5-14 MMOL/L Blood Urea Nitrogen 12 7-18 MG/DL Creatinine 0.91 0.60-1.30 MG/DL Estimat Glomerular Filtration Rate 84 BUN/Creatinine Ratio 13 Glucose Level 91 70-105 MG/DL Calcium Level 10.2 H 8.5-10.1 MG/DL Corrected Calcium 10.1 8.5-10.1 MG/DL Total Bilirubin 0.7 0.1-1.0 MG/DL Aspartate Amino Transf (AST/SGOT) 16 5-34 U/L Alanine Aminotransferase (ALT/SGPT) 13 0-55 U/L Alkaline Phosphatase 53 40-136 U/L Total Protein 7.8 6.4-8.2 GM/DL Albumin 4.1 3.2-4.5 GM/DL Lipase 34 8-78 U/L (CRYSTAL CHOI MD) Medications Given in ED Current Medications Medications Dose Ordered Sig/Darrius Route Start Time Stop Time Status Last Admin Dose Admin Ketorolac Tromethamine 30 mg ONCE ONCE IVP 06/22/22 21:00 06/22/22 21:01 DC 06/22/22 21:22 30 MG Ondansetron HCl 4 mg ONCE ONCE IVP 06/22/22 21:15 06/22/22 21:16 DC 06/22/22 21:22 4 MG (CRYSTAL CHOI MD) Vital Signs/I&O 06/22/22 06/22/22 20:50 22:44 Pulse 72 B/P (MAP) 146/87 (106) 122/84 Pulse Ox 99 O2 Delivery Room Air 06/23/22 00:00 Intake Total 1000 ml Balance 1000 ml (CRYSTAL CHOI MD) Blood Pressure Mean: 106 Departure Communication (PCP) Reviewed previous ER visits, H&P's, lab testing, imaging. History and medullary sponge kidney, nephrolithiasis with history of lithotripsy who presents the ED with cute onset of right flank pain. Concerning for kidney stone. Able to urinate without much pain. No vomiting or diarrhea but reports nausea. IV was initiated. CBC, CMP and lipase. Urinalysis with CT abdomen and pelvis. CBC showed a white blood count of 18. Hypokalemia at 3.5. Normal creatinine and GFR. She is afebrile and does not appear toxic. Urinalysis was positive for hematuria with few bacteria. Patient was given Toradol initially with some improvement. Patient Was given IV dose of fentanyl with significant improvement with near resolution of her pain. CT abdomen and pelvis shows a nonobstructing large 2 cm in long axis stone in the right renal pelvis as well as a second stone which is probably obstructive in the right renal pelvis measuring 9 mm in long axis. Moderate to severe right hydronephrosis. Patient pain controlled here. Consulted Dr. Phelps urology at [facility]. Discussed transfer versus outpatient follow-up in the clinic. Discussed with patient potential tra nsfer. Since her pain is improved she says she would rather follow-up in the clinic at this time. She does have a urologist Dr. Lu at [facility] who she has followed up in the past but may consider following up with [facility] urology. Discussed with patient will discharge with pain medication, Zofran, Flomax and Keflex prophylactically. Recommend follow-up this week with Dr. Phelps if not able to follow-up with your urologist. If not able to produce urine, fever, continue worsening pain, passing of blood clots to return back to ED. (REX OLIVER) Impression Primary Impression: Nephrolithiasis Disposition: 01 HOME, SELF-CARE Condition: Stable Departure-Patient Inst. Decision time for Depature: 22:37 (REX OLIVER) Referrals: CLAUDE HAYES MD (PCP/Family) Primary Care Physician Patient Instructions: Kidney Stone, Adult ED Add. Discharge Instructions: Follow-up with Dr. Phelps urology at [facility]. [phone] All discharge instructions reviewed with patient and/or family. Voiced understanding. Scripts Cephalexin (Cephalexin) 500 Mg Tablet 500 MG PO BID for 7 Days, #14 TAB Prov: REX OLIVER 06/22/22 Ondansetron (Ondansetron Odt) 4 Mg Tab.rapdis 4 MG SL Q4H PRN for NAUSEA/VOMITING, #6 TAB Prov: REX OLIVER 06/22/22 Tamsulosin HCl (Flomax) 0.4 Mg Cap 0.4 MG PO DAILY, #14 CAP Prov: REX OLIVER 06/22/22 Hydrocodone/Acetaminophen (Hydrocodone-Acetamin 5-325 mg) 5 Mg-325 Mg Tablet 1 TAB PO Q4H PRN for PAIN-MODERATE (5-7), #8 TAB Prov: REX OLIVER 06/22/22 Work/School Note: Work Release Form Date Seen in the Emergency Department: Jun 22, 2022 Return to Work: Jun 25, 2022 ATTENDING PHYSICIAN NOTE: I was physically present as attending physician in the emergency department during the care of this patient, but I was not directly involved in the decision making or delivery of care for this patient. (CRYSTAL CHOI MD) REX OLIVER Jun 22, 2022 21:11 CRYSTAL CHOI MD Jun 23, 2022 06:01
[2022-06-22 21:13] LABS: BASOPHILS # (AUTO) 0.1 10^3/uL (0.0-0.1); BASOPHILS % (AUTO) 1 % (0-10); EOSINOPHILS # (AUTO) 0.5 10^3/uL (0.0-0.3); EOSINOPHILS % (AUTO) 3 % (0-10); HEMATOCRIT 44 % (35-52); HEMOGLOBIN 14.9 g/dL (11.5-16.0); LYMPHOCYTES % (AUTO) 17 % (12-44); MEAN CORPUSCULAR HEMOGLOBIN 29 pg (25-34); MEAN CORPUSCULAR HGB CONC 34 g/dL (32-36); MEAN CORPUSCULAR VOLUME 85 fL (80-99); MEAN PLATELET VOLUME 9.4 fL (9.0-12.2); MONOCYTES # (AUTO) 1.2 10^3/uL (0.0-1.0); MONOCYTES % (AUTO) 7 % (0-12); NEUTROPHILS # (AUTO) 13.1 10^3/uL (1.8-7.8); NEUTROPHILS % (AUTO) 73 % (42-75); PLATELET COUNT 386 10^3/uL (130-400)
[2022-06-22 21:14] LABS: BACTERIA,URINE FEW /HPF; RBC,URINE 0-2 /HPF
[2022-06-22] MEDS ORDERED: ONDANSETRON 4 MG/2 ML (SDV) Z0FRAN IVP ONE (21:15)
[2022-06-22 21:33] LABS: EOSINOPHILS % (MANUAL) 1 %; LYMPHOCYTES % (MANUAL) 20 %; MONOCYTES % (MANUAL) 4 %; NEUTROPHILS % (MANUAL) 75 %
[2022-06-22 21:34] LABS: TOXIC GRANULATION/VACUOLAZATIO 1+
[2022-06-22 21:39] LABS: ALBUMIN 4.1 GM/DL (3.2-4.5); BILIRUBIN,TOTAL 0.7 MG/DL (0.1-1.0); CALCIUM 10.2 MG/DL (8.5-10.1); CREATININE SERUM 0.91 MG/DL (0.60-1.30); POTASSIUM 3.5 MMOL/L (3.6-5.0); TOTAL PROTEIN 7.8 GM/DL (6.4-8.2)
[2022-06-22] MEDS ORDERED: fentaNYL INJ 100 MCG/2 ML AMP IVP STA (21:59)
--- NOTE | 2022-06-22 22:06 | Diagnostic Imaging Report ---
PROCEDURE: CT urinary tract, rule out kidney stone. TECHNIQUE: Multiple contiguous axial images were obtained through the abdomen and pelvis without the use of intravenous contrast. Auto Exposure Controls were utilized during the CT exam to meet ALARA standards for radiation dose reduction. INDICATION: 37-year-old female presented with right-sided lower flank pain, history of kidney stones. COMPARISONS: 06/09/2021. FINDINGS: Lung bases are clear. Cardiac contour is normal. Liver shows uniform attenuation. The previously demonstrated hepatic steatosis has improved. Gallbladder is surgically absent. Spleen and GE junction are normal. Stomach and duodenal sweep are unremarkable. Pancreas shows sharp margins. Adrenals are normal. Kidneys once again show extensive nephrocalcinosis as well as formed calculi, mostly in the right renal calyces. There is a 2 cm in long axis stone in the right renal pelvis which is nonobstructive. There is however a stone more distal near the right UPJ measuring 9 mm in the long axis. There is moderate to severe right hydronephrosis. The ureters however are normal in caliber to the bladder. Bladder is nondistended. Nonopacified loops small bowel are unremarkable. Large bowel contains fecal material and gas up to the mid transverse colon. The remainder of the colon is mostly decompressed. There is no free air, free fluid or adenopathy. There is normal caliber of the aorta, iliac and femoral arteries with normal origin of the visceral arteries. Bone windows show no overall gross abnormality. IMPRESSION: 1. Again demonstrated is extensive bilateral nephrocalcinosis. There is now a nonobstructing but large 2 cm in long axis stone in the right renal pelvis as well as a 2nd stone which is probably obstructive in the right renal pelvis measuring 9 mm in long axis. There is an associated, moderate to severe right hydronephrosis. 2. No evidence of cholecystitis or appendicitis. No other area of peritoneal inflammation is seen. Additional nonemergent findings as described above. Dictated by: Dictated on workstation # [id number]
[2022-06-22] MEDS ORDERED: CEPH500T PO (22:38)
[2022-06-22] MEDS ORDERED: ACHD5005 PO (22:38)
[2022-06-22] MEDS ORDERED: ONDA4TAB11 SL (22:38)
[2022-06-22] MEDS ORDERED: TMSL.4C PO (22:38)
[2022-06-22 22:44] VITALS: BP 122/84
== END 2022-06-22 22:44 | disposition home or self-care (01) ==
LOC: EDUNIT# 20:10 → ER 20:11
DX: N13.2 Hydronephrosis with renal and ureteral calculous obstruction (principal); E87.6 Hypokalemia; Z90.49 Acquired absence of other specified parts of digestive tract; Z88.2 Allergy status to sulfonamides
CPT/HCPCS: 36415; 74176; 80053; 81000; 83690; 85007; 85027

== ENCOUNTER 2023-03-02 03:52 | Emergency (ER) | payer OTHER ==
[~2023-03-02] VITALS: Ht 162.5 cm; Wt 110.0 kg
[~2023-03-02 03:52] MED LIST changes: +ONDA4TAB11 SL; +TMSL.4C PO
[2023-03-02 04:00] VITALS: BP 116/78
--- NOTE | 2023-03-02 04:11 | ED Integumentary General ---
General Stated Complaint: HIVES,ALLERGIC RXN Source: patient History of Present Illness Date Seen by Provider: Mar 02, 2023 Time Seen by Provider: 04:00 Initial Comments PT ARRIVES VIA POV FROM HOME--DROVE SELF HERE C/O GENERALIZED HIVES WITH SEVERE ITCHING SINCE 193 KIAN TOOK 100 MG BENADRYL AT 2200, WITH SOME IMPROVEMENT NO SWELLING ANYWHERE NO DIFFICULTY BREATHING OR SWALLOWING OR TALKING NO GI SYMPTOMS NO DIZZINESS OR SYNCOPE NO HISTORY OF SIMILAR NO NEW FOODS, DRINKS, MEDICATIONS, PRODUCTS OR EXPOSURES SHE HAD CHICKEN [employer]S CHICKEN STRIPS AT 1330--HAS HAD MANY TIMES BEFORE, INCLUDING YESTERDAY--NEVER HAD PROBLEMS HAS HAD WATER AND DR. TALAMANTES TO DRINK TODAY HAS NOT HAD ANYTHING THAT SHE HAS NOT HAD BEFORE SHE HAS BEEN UNDER ALOT OF STRESS THE LAST MONTH, BUT TODAY WAS NOT A STRESSFUL DAY LMP--ENDED 3 DAYS AGO, NORMAL. NO CONTROL PMH: MEDULLARY SPONGE KIDNEY AND KIDNEY STONES, DEPRESSION/ANXIETY. PCP: DR. HAYES [place] Allergies and Home Medications Allergies Coded Allergies: Sulfa (Sulfonamide Antibiotics) (Unverified Allergy, Mild, HIVES, 11/28/19) Patient Home Medication List Home Medication List Reviewed: Yes Acetaminophen (Tylenol) 325 Mg Tablet, 650 MG PO Q6H PRN for PAIN-MILD (1-4), (Reported) Entered as Reported by: DANDRE GODOY on 11/28/19 1306 Albuterol Sulfate (Ventolin Hfa) 1 Puff Puff, 2 PUFF IH Q4H PRN for SHORTNESS OF BREATH, (Reported) Entered as Reported by: DANDRE GODOY on 11/28/19 1306 Cefdinir (Cefdinir) 300 Mg Capsule, 300 MG PO BID Prescribed by: EVARISTO PATEL on 06/09/212034 Cefuroxime Axetil (Cefuroxime) 250 Mg Tablet, 250 MG PO BID Prescribed by: JOVITA MOORE on 03/30/20 162 Cephalexin (Keflex) 500 Mg Capsule, 500 MG PO BID Prescribed by: BALTAZAR DEJESUS on 11/30/19 114 Cephalexin (Cephalexin) 500 Mg Tablet, 500 MG PO BID Prescribed by: SHRUTHI JIANG on 06/03/20 182 Cephalexin (Cephalexin) 500 Mg Tablet, 500 MG PO BID Prescribed by: TERESA RIVERA on 06/22/222237 Famotidine (Pepcid) 40 Mg Tablet, 40 MG PO DAILY Prescribed by: EVARISTO PATEL on 03/02/23 0503 Hydrochlorothiazide (Hydrochlorothiazide) 12.5 Mg Tablet, 12.5 MG PO BID, (Reported) Entered as Reported by: DANDRE GODOY on 11/28/19 1306 Hydrocodone/Acetaminophen (Hydrocodone-Acetamin 5-325 mg) 1 Each Tablet, 1 EACH PO Q4H PRN for PAIN-MODERATE (5-7) Prescribed by: JOVITA MOORE on 03/30/20 1620 Hydrocodone/Acetaminophen (Hydrocodone-Acetamin 5-325 mg) 1 Each Tablet, 1 TAB PO Q4H PRN for PAIN-MODERATE (5-7) Prescribed by: SHRUTHI JIANG on 06/03/20 182 Hydrocodone/Acetaminophen (Hydrocodone-Acetamin 5-325 mg) 1 Each Tablet, 1 EACH PO Q4-6 HOURS PRN for PAIN Prescribed by: EVARISTO PATEL on 06/09/212035 Hydrocodone/Acetaminophen (Hydrocodone-Acetamin 5-325 mg) 5 Mg-325 Mg Tablet, 1 TAB PO Q4H PRN for PAIN-MODERATE (5-7) Prescribed by: TERESA RIVERA on 06/22/222238 Ibuprofen (Ibuprofen) 200 Mg Tablet, 200 MG PO Q6H PRN for PAIN-MILD (1-4), (Reported) Entered as Reported by: DANDRE GODOY on 11/28/19 1325 Ketorolac Tromethamine (Ketorolac Tromethamine) 10 Mg Tablet, 10 MG PO Q6H Prescribed by: EVARISTO PATEL on 06/09/212034 L.acidoph & Paracasei,B.lactis (Probiotic) 1 Each Capsule, 1 EACH PO BID Prescribed by: SHRUTHI JIANG on 06/03/20 182 Nitrofurantoin Monohyd/M-Cryst (Macrobid 100 mg Capsule) 100 Mg Capsule, 1 TAB PO BID Prescribed by: EVARISTO PATEL on 12/17/21 0421 Ondansetron (Ondansetron Odt) 4 Mg Tab.rapdis, 4-8 MG PO Q6H PRN for NAUSEA/VOMITING Prescribed by: SHRUTHI JIANG on 06/03/20 182 Ondansetron (Ondansetron Odt) 4 Mg Tab.rapdis, 4 MG SL Q4H PRN for NAUSEA/VOMITING Prescribed by: TERESA RIVERA on 06/22/222237 Prednisone (Prednisone) 20 Mg Tab, 40 MG PO DAILY Prescribed by: EVARISTO PATEL on 03/02/23 0503 Tamsulosin HCl (Flomax) 0.4 Mg Cap, 0.4 MG PO DAILY Prescribed by: TERESA RIVERA on 06/22/222237 Review of Systems Review of Systems Constitutional: no symptoms reported EENTM: no symptoms reported Respiratory: no symptoms reported Cardiovascular: no symptoms reported Gastrointestinal: no symptoms reported Genitourinary: no symptoms reported : No LMP: Feb 23, 2023 Musculoskeletal: no symptoms reported Skin: see HPI Psychiatric/Neurological: See HPI Endocrine: No Symptoms Reported Hematologic/Lymphatic: No Symptoms Reported Past [id number]-Wsaxzb Hx Patient Social History Tobacco Use?: No Substance use?: No Alcohol Use?: No Immunizations Up To Date Tetanus Booster (TDap): Unknown First/Initial COVID19 Vaccinat: IN THE FALL VACC X2 Second COVID19 Vaccination Js: IN THE FALL VACC X2 Third COVID19 Vaccination Date: IN THE FALL VACC X2 Seasonal Allergies Seasonal Allergies: No Past Medical History Surgeries: Yes (LITHOTRIPSIES, URETERAL STENTS, CYSTOSCOPIES, KIDNEY STONE REMOVALS;C-S X 3) Appendectomy, Section, Gallbladder, Renal, Tubal Ligation Respiratory: No Cardiac: Yes Hypertension Neurological: No Reproductive Disorders: 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 Sexually Transmitted Disease: No Genitourinary: Yes (MEDULLARY SPONGE KIDNEY; MULTIPLE UROLOGICAL PROCEDURES) Kidney Infection, Bladder Infection, Kidney Stones Gastrointestinal: No Musculoskeletal: No Endocrine: No HEENT: No Cancer: No Psychosocial: Yes Anxiety, Depression Integumentary: No Blood Disorders: No Family Medical History No Pertinent Family Hx Physical Exam Vital Signs Vital Signs - First Documented 03/02/23 04:00 Temp 36.3 Pulse 93 Resp 16 B/P (MAP) 116/78 (91) Capillary Refill : General Appearance: WD/WN, no apparent distress HEENT: PERRL/EOMI, normal ENT inspection, other (NO SWELLING TO LIPS OR ORAL MUCOSA) Neck: normal inspection Cardiovascular: regular rate, rhythm, no murmur Respiratory: normal breath sounds, no respiratory distress, no accessory muscle use Gastrointestinal: non tender, soft Extremities: normal inspection, no pedal edema, no calf tenderness, normal capillary refill 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 EARS ARE FLUSHED, BUT NO RASH TO FACE OR NECK OR SCALP. HANDS/FEET ARE SPARED. ) Progress/Results/Core Measures Results/Orders Lab Results Laboratory Tests Test 03/02/23 04:18 Range/Units White Blood Count 11.4 H 4.3-11.0 10^3/uL Red Blood Count 5.14 H 3.80-5.11 10^6/uL Hemoglobin 14.4 11.5-16.0 g/dL Hematocrit 44 35-52 % Mean Corpuscular Volume 85 80-99 fL Mean Corpuscular Hemoglobin 28 25-34 pg Mean Corpuscular Hemoglobin Concent 33 32-36 g/dL Red Cell Distribution Width 13.5 10.0-14.5 % Platelet Count 467 H 130-400 10^3/uL Mean Platelet Volume 9.1 9.0-12.2 fL Immature Granulocyte % (Auto) 1 % Neutrophils (%) (Auto) 45 42-75 % Lymphocytes (%) (Auto) 40 12-44 % Monocytes (%) (Auto) 6 0-12 % Eosinophils (%) (Auto) 7 0-10 % Basophils (%) (Auto) 1 0-10 % Neutrophils # (Auto) 5.2 1.8-7.8 10^3/uL Lymphocytes # (Auto) 4.6 H 1.0-4.0 10^3/uL Monocytes # (Auto) 0.7 0.0-1.0 10^3/uL Eosinophils # (Auto) 0.8 H 0.0-0.3 10^3/uL Basophils # (Auto) 0.1 0.0-0.1 10^3/uL Immature Granulocyte # (Auto) 0.1 0.0-0.1 10^3/uL Sodium Level 137 135-145 MMOL/L Potassium Level 3.6 3.6-5.0 MMOL/L Chloride Level 105 98-107 MMOL/L Carbon Dioxide Level 20 L 21-32 MMOL/L Anion Gap 12 5-14 MMOL/L Blood Urea Nitrogen 18 7-18 MG/DL Creatinine 0.89 0.60-1.30 MG/DL Estimat Glomerular Filtration Rate 86 BUN/Creatinine Ratio 20 Glucose Level 115 H 70-105 MG/DL Calcium Level 9.6 8.5-10.1 MG/DL Corrected Calcium 9.5 8.5-10.1 MG/DL Total Bilirubin 0.3 0.1-1.0 MG/DL Aspartate Amino Transf (AST/SGOT) 18 5-34 U/L Alanine Aminotransferase (ALT/SGPT) 21 0-55 U/L Alkaline Phosphatase 66 40-136 U/L Total Protein 7.6 6.4-8.2 GM/DL Albumin 4.1 3.2-4.5 GM/DL Serum Test, Qualitative NEGATIVE NEGATIVE My Orders Orders - EVARISTO PATEL DO Ed Iv/Invasive Line Start (03/02/23 04:07) Monitor-Rhythm Ecg Trace Only (03/02/23 04:07) Famotidine Injection (Famotidine Injec (03/02/23 04:15) Methylprednisolone Sod Succ (Methylpredn (03/02/23 04:15) Cbc And Automated Diff (03/02/23 04:07) Comprehensive Metabolic Panel (03/02/23 04:07) Hcg,Qualitative Serum (03/02/23 04:07) Methylprednisolone Sod Succ (Methylpredn (03/02/23 04:26) Medications Given in ED Current Medications Medications Dose Ordered Sig/Darrius Route Start Time Stop Time Status Last Admin Dose Admin Famotidine 40 mg ONCE ONCE IVP 03/02/23 04:15 03/02/23 04:17 DC 03/02/23 04:20 40 MG Methylprednisolone Sodium Succinate 125 mg ONCE ONCE IVP 03/02/23 04:15 03/02/23 04:17 DC 03/02/23 04:21 125 MG Vital Signs/I&O 03/02/23 04:00 Temp 36.3 Pulse 93 Resp 16 B/P (MAP) 116/78 (91) Progress Progress Note : Progress Note VITALS ON ARRIVAL: BP 116/78, HR 90, O2 SAT 97% ON ROOM AIR, RR 16 GIVEN: -SOLU-MEDROL -PEPCID LABS: -CBC UNREMARKABLE -CMP UNREMARKABLE -HCG NEGATIVE SYMPTOMS RESOLVED AT DISMISSAL. DISCUSSED TEST RESULTS, ANTICIPATED COURSE, SYMPTOMATIC TREATMENT, MEDICATIONS, NEED FOR FOLLOW UP AND RETURN PRECAUTIONS REVIEWED PRIOR RECORDS INCLUDING ER VISITS, ADMITS/H&P'S/CONSULTS/DISCHARGE SUMMARIES, TESTS/PROCEDURES. Departure Impression Primary Impression: Hives of unknown origin Disposition: HOME, SELF-CARE Condition: Improved Departure-Patient Inst. Decision time for Depature: 05:00 Referrals: CLAUDE HAYES MD (PCP/Family) Primary Care Physician Patient Instructions: Kyra (DC) Add. Discharge Instructions: TAKE BENADRYL 50 MG EVERY 4 HOURS NEEDED FOR RASH AND ITCHING LOTS OF CLEAR LIQUIDS AVOID ANY NEW FOODS OR DRINKS RETURN TO ER IF SYMPTOMS WORSEN Scripts Prednisone (Prednisone) 20 Mg Tab 40 MG PO DAILY, #6 TAB 0 Refills Prov: EVARISTO PATEL DO 03/02/23 Famotidine (Pepcid) 40 Mg Tablet 40 MG PO DAILY, #10 TAB Prov: EVARISTO PATEL DO 03/02/23 Work/School Note: Work Release Form Date Seen in the Emergency Department: Mar 02, 2023 Return to Work: Mar 03, 2023 Restrictions: No Restrictions EVARISTO PATEL DO Mar 02, 2023 04:11
[2023-03-02] MEDS ORDERED: FAMOTIDINE INJ 20MG/2ML VIAL IVP ONE (04:15)
[2023-03-02] MEDS ORDERED: methylPREDNISolone INJ 125 MG VIAL IVP ONE (04:15)
[2023-03-02] MEDS ORDERED: methylPREDNISolone INJ 125 MG VIAL ONE (04:26)
[2023-03-02 04:28] LABS: BASOPHILS # (AUTO) 0.1 10^3/uL (0.0-0.1); BASOPHILS % (AUTO) 1 % (0-10); EOSINOPHILS # (AUTO) 0.8 10^3/uL (0.0-0.3); EOSINOPHILS % (AUTO) 7 % (0-10); HEMATOCRIT 44 % (35-52); HEMOGLOBIN 14.4 g/dL (11.5-16.0); LYMPHOCYTES # (AUTO) 4.6 10^3/uL (1.0-4.0); LYMPHOCYTES % (AUTO) 40 % (12-44); MEAN CORPUSCULAR HEMOGLOBIN 28 pg (25-34); MEAN CORPUSCULAR HGB CONC 33 g/dL (32-36); MEAN CORPUSCULAR VOLUME 85 fL (80-99); MEAN PLATELET VOLUME 9.1 fL (9.0-12.2); MONOCYTES # (AUTO) 0.7 10^3/uL (0.0-1.0); MONOCYTES % (AUTO) 6 % (0-12); NEUTROPHILS # (AUTO) 5.2 10^3/uL (1.8-7.8); NEUTROPHILS % (AUTO) 45 % (42-75); PLATELET COUNT 467 10^3/uL (130-400); WHITE BLOOD COUNT 11.4 10^3/uL (4.3-11.0)
[2023-03-02 04:41] LABS: ALBUMIN 4.1 GM/DL (3.2-4.5); POTASSIUM 3.6 MMOL/L (3.6-5.0)
[2023-03-02 04:42] LABS: CALCIUM 9.6 MG/DL (8.5-10.1)
[2023-03-02 04:44] LABS: TOTAL PROTEIN 7.6 GM/DL (6.4-8.2)
[2023-03-02 04:45] LABS: BILIRUBIN,TOTAL 0.3 MG/DL (0.1-1.0)
[2023-03-02 04:47] LABS: CREATININE SERUM 0.89 MG/DL (0.60-1.30)
[2023-03-02] MEDS ORDERED: FAMO40TA72 PO (05:03)
[2023-03-02] MEDS ORDERED: PRD20T PO (05:03)
== END 2023-03-02 05:11 | disposition home or self-care (01) ==
LOC: EDUNIT# 03:52 → ER 03:55
DX: L50.9 Urticaria, unspecified (principal)
CPT/HCPCS: 36415; 80053; 84703; 85025

== ENCOUNTER 2023-03-02 21:54 | Emergency (ER) | payer OTHER ==
[~2023-03-02 21:54] MED LIST changes: +FAMO40TA72 PO; +PRD20T PO
[2023-03-02] MEDS ORDERED: FAMOTIDINE INJ 20MG/2ML VIAL IVP ONE (23:15)
[2023-03-02] MEDS ORDERED: methylPREDNISolone INJ 125 MG VIAL IVP ONE (23:15)
--- NOTE | 2023-03-03 00:03 | ED Integumentary General ---
General Chief Complaint: Skin/Wound Problems Stated Complaint: HIVES BREAKOUT Nursing Triage Note: PT AMB TO RM 5 WITH C/O HIVES SINCE YESTERDAY. PT SEEN HERE YESTERDAY Source: patient History of Present Illness Date Seen by Provider: Mar 02, 2023 Time Seen by Provider: 21:05 Allergies and Home Medications Allergies Coded Allergies: Sulfa (Sulfonamide Antibiotics) (Unverified Allergy, Mild, HIVES, 11/28/19) Patient Home Medication List Acetaminophen (Tylenol) 325 Mg Tablet, 650 MG PO Q6H PRN for PAIN-MILD (1-4), (Reported) Entered as Reported by: DANDRE GODOY on 11/28/19 1306 Albuterol Sulfate (Ventolin Hfa) 1 Puff Puff, 2 PUFF IH Q4H PRN for SHORTNESS OF BREATH, (Reported) Entered as Reported by: DANDRE GODOY on 11/28/19 1306 Cefdinir (Cefdinir) 300 Mg Capsule, 300 MG PO BID Prescribed by: EVARISTO PATEL on 06/09/21 203 Cefuroxime Axetil (Cefuroxime) 250 Mg Tablet, 250 MG PO BID Prescribed by: JOVITA MOORE on 03/30/20 1620 Cephalexin (Keflex) 500 Mg Capsule, 500 MG PO BID Prescribed by: BALTAZAR DEJESUS on 11/30/19 1142 Cephalexin (Cephalexin) 500 Mg Tablet, 500 MG PO BID Prescribed by: SHRUTHI JIANG on 06/03/20 1826 Cephalexin (Cephalexin) 500 Mg Tablet, 500 MG PO BID Prescribed by: TERESA RIVERA on 06/22/22 2238 Famotidine (Pepcid) 40 Mg Tablet, 40 MG PO DAILY Prescribed by: EVARISTO PATEL on 03/02/23 0503 Hydrochlorothiazide (Hydrochlorothiazide) 12.5 Mg Tablet, 12.5 MG PO BID, (Reported) Entered as Reported by: DANDRE GODOY on 11/28/19 1306 Hydrocodone/Acetaminophen (Hydrocodone-Acetamin 5-325 mg) 1 Each Tablet, 1 EACH PO Q4H PRN for PAIN-MODERATE (5-7) Prescribed by: JOVITA MOORE on 03/30/20 1620 Hydrocodone/Acetaminophen (Hydrocodone-Acetamin 5-325 mg) 1 Each Tablet, 1 TAB PO Q4H PRN for PAIN-MODERATE (5-7) Prescribed by: SHRUTHI JIANG on 06/03/201826 Hydrocodone/Acetaminophen (Hydrocodone-Acetamin 5-325 mg) 1 Each Tablet, 1 EACH PO Q4-6 HOURS PRN for PAIN Prescribed by: EVARISTO PATEL on 06/09/212035 Hydrocodone/Acetaminophen (Hydrocodone-Acetamin 5-325 mg) 5 Mg-325 Mg Tablet, 1 TAB PO Q4H PRN for PAIN-MODERATE (5-7) Prescribed by: TERESA RIVERA on 06/22/222238 Ibuprofen (Ibuprofen) 200 Mg Tablet, 200 MG PO Q6H PRN for PAIN-MILD (1-4), (Reported) Entered as Reported by: DANDRE GODOY on 11/28/19 132 Ketorolac Tromethamine (Ketorolac Tromethamine) 10 Mg Tablet, 10 MG PO Q6H Prescribed by: EVARISTO PATEL on 06/09/212034 L.acidoph & Paracasei,B.lactis (Probiotic) 1 Each Capsule, 1 EACH PO BID Prescribed by: SHRUTHI JIANG on 06/03/201825 Nitrofurantoin Monohyd/M-Cryst (Macrobid 100 mg Capsule) 100 Mg Capsule, 1 TAB PO BID Prescribed by: EVARISTO PATEL on 12/17/21 042 Ondansetron (Ondansetron Odt) 4 Mg Tab.rapdis, 4-8 MG PO Q6H PRN for NAUSEA/VOMITING Prescribed by: SHRUTHI JIANG on 06/03/201825 Ondansetron (Ondansetron Odt) 4 Mg Tab.rapdis, 4 MG SL Q4H PRN for NAUSEA/VO MITING Prescribed by: TERESA RIVERA on 06/22/222237 Prednisone (Prednisone) 20 Mg Tab, 40 MG PO DAILY Prescribed by: EVARISTO PATEL on 03/02/23 050 Tamsulosin HCl (Flomax) 0.4 Mg Cap, 0.4 MG PO DAILY Prescribed by: TERESA RIVERA on 06/22/222237 Past Yqaqhhf-Zbolnu-Cnxtsx Hx Patient Social History Tobacco Use?: No Use of E-Cig and/or Vaping dev: No Substance use?: No Alcohol Use?: No Pt feels they are or have been: No Immunizations Up To Date Tetanus Booster (TDap): Unknown First/Initial COVID19 Vaccinat: IN THE FALL VACC X2 Second COVID19 Vaccination Js: IN THE FALL VACC X2 Third COVID19 Vaccination Date: IN THE FALL VACC X2 Seasonal Allergies Seasonal Allergies: No Past Medical History Surgeries: Yes (LITHOTRIPSIES, URETERAL STENTS, CYSTOSCOPIES, KIDNEY STONE REMOVALS;C-S X 3) Appendectomy, Section, Gallbladder, Renal, Tubal Ligation Respiratory: No Cardiac: Yes Hypertension Neurological: No Last Menstrual Period: Feb 23, 2023 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 Transmitted Disease: No Genitourinary: Yes (MEDULLARY SPONGE KIDNEY; MULTIPLE UROLOGICAL PROCEDURES) Kidney Infection, Bladder Infection, Kidney Stones Gastrointestinal: No Musculoskeletal: No Endocrine: No HEENT: No Cancer: No Psychosocial: Yes Anxiety, Depression Integumentary: No Blood Disorders: No Family Medical History No Pertinent Family Hx Physical Exam Vital Signs Vital Signs - First Documented 03/02/23 22:03 Pulse 111 Resp 96 B/P (MAP) 123/83 (96) O2 Delivery Room Air Capillary Refill : Progress/Results/Core Measures Results/Orders My Orders Orders - EVRAISTO PATEL DO Ed Iv/Invasive Line Start (03/02/23 23:06) Methylprednisolone Sod Succ (Methylpredn (03/02/23 23:15) Famotidine Injection (Famotidine Injec (03/02/23 23:15) Medications Given in ED Current Medications Medications Dose Ordered Sig/Darrius Route Start Time Stop Time Status Last Admin Dose Admin Famotidine 40 mg ONCE ONCE IVP 03/02/23 23:15 03/02/23 23:16 DC 03/02/23 23:32 40 MG Methylprednisolone Sodium Succinate 125 mg ONCE ONCE IVP 03/02/23 23:15 03/02/23 23:16 DC 03/02/23 23:33 125 MG Vital Signs/I&O 03/02/23 22:03 Pulse 111 Resp 96 B/P (MAP) 123/83 (96) O2 Delivery Room Air Blood Pressure Mean: 96 Progress Progress Note : Progress Note GIVEN: -SOLU-MEDROL -PEPCID NO BENADRYL GIVEN, PT DROVE HERSELF AND 2 CHILDREN HERE TO ER Departure Impression Primary Impression: Hives of unknown origin Disposition: HOME, SELF-CARE Condition: Improved Departure-Patient Inst. Decision time for Depature: 00:05 Referrals: CLAUDE HAYES MD (PCP/Family) Primary Care Physician Patient Instructions: Kyra (DC) Add. Discharge Instructions: TAKE BENADRYL 50 MG EVERY 4 HOURS FOR RASH AND ITCHING LOTS OF FLUIDS CONTINUE PREDNISONE AND PEPCID PRESCRIBED FOLLOW UP WITH YOUR DR IN 2-3 DAYS IF NO BETTER, RETURN TO ER IF WORSE All discharge instructions reviewed with patient and/or family. Voiced unders tanding. Work/School Note: Work Release Form Date Seen in the Emergency Department: Mar 02, 2023 EVARISTO PATEL DO Mar 03, 2023 00:02
[2023-03-03 00:10] VITALS: BP 141/68
== END 2023-03-03 00:10 | disposition home or self-care (01) ==
LOC: EDUNIT# 21:54 → ER 21:57
DX: L50.9 Urticaria, unspecified (principal)